=== PATIENT | female | born 1935 | race Caucasian/White ===

== ENCOUNTER → 2019-09-19 | Outpatient (CLI) | payer MEDICARE, BC ==
--- NOTE | 2019-09-19 15:17 | P.ARTDOP ---
Arterial Doppler LOWER EXTREMITY ARTERIAL DOPPLER: DATE OF SERVICE: 09/19/2019 Reason for study: Foot rubor. Doppler waveforms: Multiphasic at the femoral level, atypical to the ankle and foot level. Toe waveforms are flat line. Pulse volume recording: []. Pressure gradients: Above the low thigh on the right and across the knee on the left. Ankle-brachial indices: 0.39 on the right and 0.49 on the left. Toe pressures: [] on the right, [] on the left Impression: Suggests moderate to severe right femoral popliteal disease. Moderate left fem-pop disease. Clinical correlation recommended..
== END | disposition home or self-care (01) ==
LOC: RADUSWWP 12:59
PROVIDERS: ATTEND Internal Medicine
DX: L03.116 Cellulitis of left lower limb (principal)
CPT/HCPCS: 93923

== ENCOUNTER 2019-09-20 11:23 | Inpatient (IN) | payer MEDICARE, BC ==
--- NOTE | 2019-09-20 12:25 | ED ---
General Adult HPI - General Source: patient, family, RN notes reviewed Mode of arrival: wheelchair Limitations: no limitations <Agustín Lopez - Last Filed: 09/20/19 15:54> <Yosvany Nye - Last Filed: 09/20/19 16:07> - General Chief complaint: Extremity Injury, Lower Stated complaint: rt foot infection Time Seen by Provider: 09/20/19 11:53 - History of Present Illness Initial comments: 84-year-old female presents to the emergency department for right foot pain. Daughter states this has been ongoing for several weeks, she is unsure exactly how long. States her foot is red and swollen. States she has a small laceration on the plantar aspect of the right great toe that has been there for several weeks. States she has a small black spot on the right pinky toe she is concerned about. They did go to urgent care 5 days ago and was started on Keflex and Bactrim without improvement of symptoms. She saw her primary care yesterday who ordered an arterial study. This is as documented.Patient has no other complaints at this time including shortness of breath, chest pain, abdominal pain, nausea or vomiting, headache, or visual changes. (Agustín Lopez) - Related Data Allergies Allergy/AdvReac Type Severity Reaction Status Date / Time No Known Allergies Allergy Verified 09/20/19 11:28 Review of Systems ROS Other: All systems not noted in ROS Statement are negative. <Agustín Lopez - Last Filed: 09/20/19 15:54> ROS Other: All systems not noted in ROS Statement are negative. <Yosvany Nye - Last Filed: 09/20/19 16:07> ROS Statement: Those systems with pertinent positive or pertinent negative responses have been documented in the HPI. Past Medical History Past Medical History: Dementia, Hyperlipidemia, Hypertension, Thyroid Disorder History of Any Multi-Drug Resistant Organisms: None Reported Past Surgical History: Adenoidectomy, Hysterectomy, Tonsillectomy Past Psychological History: No Psychological Hx Reported Smoking Status: Never smoker Past Alcohol Use History: None Reported Past Drug Use History: None Reported <Agustín Lopez - Last Filed: 09/20/19 15:54> General Exam Limitations: no limitations General appearance: alert, in no apparent distress Head exam: Present: atraumatic, normocephalic, normal inspection Eye exam: Present: normal appearance, PERRL, EOMI. Absent: scleral icterus, conjunctival injection, periorbital swelling ENT exam: Present: normal exam, mucous membranes moist Neck exam: Present: normal inspection, full ROM. Absent: tenderness, meningismus, lymphadenopathy Respiratory exam: Present: normal lung sounds bilaterally. Absent: respiratory distress, wheezes, rales, rhonchi, stridor Cardiovascular Exam: Present: regular rate, normal rhythm, normal heart sounds. Absent: systolic murmur, diastolic murmur, rubs, gallop, clicks Extremities exam: Present: full ROM (pt is able to move all toes of the right foot.), other (Patient has mild edema noted of the toes with mild erythema extending to the proximal aspect of the right foot. There is a chronic fissure noted along the plantar aspect of the first great toe. There is a small area of black tissue noted on the right pinky toe about 1 cm by 1 cm. ). Absent: normal capillary refill (sluggish cap refill. Pt pulse evident on dopper in RLE) <Agustín Lopez - Last Filed: 09/20/19 15:54> Course <Agustín Lopez - Last Filed: 09/20/19 15:54> <Yosvany Nye - Last Filed: 09/20/19 16:07> Vital Signs 09/20/19 09/20/19 11:28 15:00 Temperature 97.6 F Pulse Rate 58 L 62 Respiratory 16 18 Rate Blood Pressure 119/54 114/58 O2 Sat by Pulse 99 98 Oximetry - Reevaluation(s) Reevaluation #1: 09/20/19 13:53 Delay in care occurred when labs were not taken down to laboratory due to tube s ystem malfunction. I did contact the charge nurse Marilia MORALES about this. 09/20/19 14:55 Patients CBC clotted. Needed to redraw (Agustín Lopez) Reevaluation #2: 09/20/19 15:45 Patient asked for some time to make her decision about admission. (Agustín Lopez) 09/20/19 16:06 PA supervision: I personally saw the [id number] evaluation the patient did discuss the findings with her and her family did discuss case Dr. Araujo the patient will be admitted with consultation by Dr. Blackmon (Yosvany Nye) Medical Decision Making - Lab Data Result diagrams: 09/20/19 14:44 09/20/19 13:20 <Agustín Lopez - Last Filed: 09/20/19 15:54> - Lab Data Result diagrams: 09/20/19 14:44 09/20/19 13:20 <Yosvany Nye - Last Filed: 09/20/19 16:07> - Medical Decision Making Patient had an arterial study done of the lower extremities yesterday. This did show moderate to severe right femoral popliteal disease. CBC CMP unremarkable. Examination reveals erythematous right foot with mild edema. Family does state rubor increases with dependency. There is a small area of likely necrotic tissue noted to the lateral aspect of the right fifth toe. Patients daughter reports this has increased in size in the past day. Capillary refill is sluggish. Patient does have a PT pulse on Doppler. Arterial study was reviewed which showed moderate to severe right femoral popliteal disease. Patient was also evaluated by Dr. Nye. At this time recommends admission for patient to see vascular surgery as she cannot see surgeon until next week. We do not suspect this to be a cellulitis at this time, further antibiotics will not be ordered. (Agustín Lopez) - Lab Data Lab Results 09/20/19 09/20/19 09/20/19 Range/Units 13:20 13:20 14:44 WBC 6.3 (3.8-10.6) k/uL RBC 3.63 L (3.80-5.40) m/uL Hgb 11.7 (11.4-16.0) gm/dL Hct 35.3 (34.0-46.0) % MCV 97.0 (80.0-100.0) fL MCH 32.2 (25.0-35.0) pg MCHC 33.2 (31.0-37.0) g/dL RDW 16.0 H (11.5-15.5) % Plt Count 349 (150-450) k/uL Neutrophils % 51 % Lymphocytes % 31 % Monocytes % 10 % Eosinophils % 1 % Basophils % 3 % Neutrophils # 3.2 (1.3-7.7) k/uL Lymphocytes # 2.0 (1.0-4.8) k/uL Monocytes # 0.6 (0-1.0) k/uL Eosinophils # 0.1 (0-0.7) k/uL Basophils # 0.2 (0-0.2) k/uL Sodium 135 L (137-145) mmol/L Potassium 5.1 (3.5-5.1) mmol/L Chloride 101 (98-107) mmol/L Carbon Dioxide 20 L (22-30) mmol/L Anion Gap 14 mmol/L BUN 25 H (7-17) mg/dL Creatinine 0.93 (0.52-1.04) mg/dL Est GFR (CKD-EPI)AfAm 65 (>60 ml/min/1.73 sqM) Est GFR (CKD-EPI)NonAf 56 (>60 ml/min/1.73 sqM) Glucose 84 (74-99) mg/dL Plasma Lactic Acid Taras 1.2 (0.7-2.0) mmol/L Calcium 9.6 (8.4-10.2) mg/dL Total Bilirubin 0.6 (0.2-1.3) mg/dL AST 36 (14-36) U/L ALT 26 (9-52) U/L Alkaline Phosphatase 48 (38-126) U/L Total Protein 8.0 (6.3-8.2) g/dL Albumin 4.3 (3.5-5.0) g/dL Disposition Is patient prescribed a controlled substance at d/c from ED?: No Time of Disposition: 15:55 <Agustín Lopez - Last Filed: 09/20/19 15:54> <Yosvany Nye - Last Filed: 09/20/19 16:07> Clinical Impression: Peripheral arterial disease Disposition: ADMITTED IP TO THIS HOSP Condition: Good Referrals: Bonifacio Carrero MD [Primary Care Provider] - 1-2 days
[2019-09-20] MEDS ORDERED: cefTRIAXone IN SWFI 1,000 MG/10 ML SYRINGE IVP STA (12:36)
[2019-09-20] MEDS ORDERED: SODIUM CHLORIDE 0.9% 500 ML 500 ML IV STA (12:37)
--- NOTE | 2019-09-20 14:10 | XR ---
EXAMINATION TYPE: XR foot complete RT DATE OF EXAM: 09/20/2019 COMPARISON: NONE HISTORY: 84-year-old female pain, possible cellulitis. TECHNIQUE: 3 views FINDINGS: Some soft tissue swelling along the lateral forefoot. No acute fracture, subluxation, dislocation is seen. No discrete osseous erosions. Small plantar calcaneal spur. IMPRESSION: Soft tissue swelling especially along the lateral forefoot. No underlying acute osseous abnormality s een.
[2019-09-20 14:16] LABS: Albumin 4.3 g/dL (3.5-5.0); Calcium 9.6 mg/dL (8.4-10.2); Total Bilirubin 0.6 mg/dL (0.2-1.3)
[2019-09-20 14:23] LABS: Potassium 5.1 mmol/L (3.5-5.1)
[2019-09-20 15:05] LABS: Basophils # (A) 0.2 k/uL (0-0.2); Basophils % (A) 3 %; Eosinophils # (A) 0.1 k/uL (0-0.7); Eosinophils % (A) 1 %; HCT 35.3 % (34.0-46.0); HGB 11.7 gm/dL (11.4-16.0); Lymphocytes % (A) 31 %; MCH 32.2 pg (25.0-35.0); MCHC 33.2 g/dL (31.0-37.0); Mean Platelet Volume 7.3; Monocytes # (A) 0.6 k/uL (0-1.0); Monocytes % (A) 10 %; Neutrophils # (A) 3.2 k/uL (1.3-7.7); Neutrophils % (A) 51 %; Platelet Count 349 k/uL (150-450); RBC 3.63 m/uL (3.80-5.40); WBC 6.3 k/uL (3.8-10.6)
[2019-09-20] MEDS ORDERED: NALOXONE 0.4 MG/ML 1 ML VIAL IV PRN (15:50)
[2019-09-20] MEDS ORDERED: HEPARIN SODIUM,PORCINE 5,000 UNIT/ML 1 ML VIAL IV ONE (16:04)
[2019-09-20] MEDS: SODIUM CHLORIDE 0.9% 1,000 ML IV SCH (16:36)
[2019-09-20] MEDS: HEPARIN SOD,PORK IN 0.45% NACL 25,000 UNIT in 0.45% NACL 1 250ML.BAG IV SCH (16:36)
[2019-09-20] MEDS: ATORVASTATIN 10 MG TAB PO SCH (21:08)
[2019-09-20] MEDS: METOPROLOL TARTRATE 25 MG TAB PO SCH (21:08)
[2019-09-21] MEDS: ACETAMINOPHEN TAB 325 MG TAB PO PRN (02:11)
[2019-09-21] MEDS: SODIUM CHLORIDE 0.9% 1,000 ML IV SCH ×2 (04:33→17:37)
[2019-09-21] MEDS: LEVOTHYROXINE 50 MCG TAB PO SCH (05:11)
[2019-09-21] MEDS: METOPROLOL TARTRATE 25 MG TAB PO SCH ×2 (08:45→22:24)
[2019-09-21] MEDS ORDERED: PARoxetine 20 MG TAB PO SCH (09:00)
[2019-09-21 09:03] LABS: INR 0.9 (<1.2); Partial Thromboplastin Time 43.8 sec (22.0-30.0)
[2019-09-21] MEDS: HEPARIN SODIUM,PORCINE 5,000 UNIT/ML 1 ML VIAL IV PRN (09:38)
[2019-09-21 09:58] LABS: Anisocytosis Slight; HCT 36.7 % (34.0-46.0); HGB 12.2 gm/dL (11.4-16.0); MCH 32.4 pg (25.0-35.0); MCHC 33.3 g/dL (31.0-37.0); MCV 97.3 fL (80.0-100.0); Mean Platelet Volume 8.8; Platelet Count 185 k/uL (150-450); RBC 3.77 m/uL (3.80-5.40); WBC 5.6 k/uL (3.8-10.6)
[2019-09-21 10:25] LABS: Band Neutrophils % 1 %; Lymphocytes # (M) 2.18 k/uL (1.0-4.8); Neutrophils % (M) 51 %; Nucleated Red Blood Cells 0 /100 WBC (0-0); Total Cells Counted 100
[2019-09-21 10:26] LABS: Poikilocytosis (M) Present
--- NOTE | 2019-09-21 14:25 | CT ---
EXAMINATION TYPE: CT angio abd aorta w/Runoff DATE OF EXAM: 09/21/2019 HISTORY: PAD, critical limb ischemia, right foot wound. CT DLP: 541.7mGycm Automated Exposure Control for Dose Reduction was Utilized. CONTRAST: CT scan of the abdomen and pelvis is performed with IV Contrast, patient injected with 80 mL of Isovu e 370. Three-dimensional reconstructions performed on an alternate workstation. COMPARISON: CT 08/19/2010 FINDINGS: The abdominal aorta, celiac axis, superior mesenteric artery, renal arteries, inferior mese nteric artery, common iliac, internal and external iliac arteries, common femoral, superficial deep f emoral arteries, popliteal artery on the left are patent. Poststenotic dilatation noted of the celiac axis. There is a segmental occlusion of the right popliteal artery. High-grade stenosis present of t he left popliteal artery, axial image #204. Atheromatous changes are present bilaterally. Trifurcatio n vessels enhance on the left. Peroneal artery on the right does not enhance the same degree as the a nterior tibial and posterior tibial arteries. LUNG BASES: No significant abnormality is appreciated. Minimal atelectatic changes are present. LIVER/GB: No significant abnormality is appreciated. PANCREAS: No significant abnormality is seen. SPLEEN: No significant abnormality is seen. ADRENALS: No significant abnormality is seen. KIDNEYS: No significant abnormality is seen. BOWEL: Diverticular change is extensive in the sigmoid colon. UTERUS/ADNEXA: No gross abnormality see n. LYMPH NODES: No greater than 1cm abdominal or pelvic lymph nodes are appreciated. OSSEOUS STRUCTURES: There is a spinal curvature. Degenerative disc changes are present visualized spi ne. Chondrocalcinosis present within the kidneys. Osteoarthritic change present within the hips. OTHER: There is a small hiatal hernia. Uterus and adnexal structures not seen. There are coronary art essence calcifications present. Injection granuloma noted incidentally. IMPRESSION: Peripheral vascular occlusive disease as described.
--- NOTE | 2019-09-21 14:36 | P.HPIM ---
History of Present Illness H&P Date: 09/21/19 Chief Complaint: Right foot pain This is an 84-year-old female newly established with Dr. Araujo/Anjana with past medical history of dementia, hyperlipidemia, hypertension, hypothyroidism. Patient has had a small wound to the right fifth toe for approximately one month. It has become very painful and red. Patient is unable to bear weight and walk normally. She has been limping due to the pain in the toe. She is also noted to have small wounds to the plantar surface base of the right great toe, fourth and fifth toes. She had an arterial study done on by Dr. Gavin revealed moderate to severe right femoral popliteal disease. Moderate left fem-pop disease. Patient is currently living at home alone. The last couple weeks, patient has been staying with her daughter. Patient does not use an assistive device to ambulate. Patient presented to [facility] emergency center and was found to be afebrile, heart rate 58, blood pressure 119/54, pulse ox 99% on room air. CBC was within normal limits, sodium 135, potassium 5.1, chloride 101, CO2 20, BUN 25 creatinine 0.93, blood sugar 84. Lactic acid 1.2. Liver function tests within normal limits. Albumin 4.3. Foot x-ray showed soft tissue swelling especially along the lateral forefoot. No underlying acute osseous abnormality seen. Patient was given a dose of Rocephin and started on heparin drip and IV fluids. Patient started on kefzol and consult with vascular surgeon for PAD. CTA abdomen aorta with runoff revealed peripheral vascular disease with post stenotic dilatation noted of the celiac axis. Segmental occlusion of the right popliteal artery. high-grade stenosis present at the left popliteal artery. Atheromatous changes present bilaterally. Trifurcation vessels enhance on the left. Peroneal artery on the right does not enhance the same degree as the anterior tibial and posterior tibial arteries. Review of Systems Constitutional: Reports fatigue, Denies chills, Denies fever, Denies poor appetite, Denies weakness Eyes: denies blurred vision, denies pain Ears, nose, mouth and throat: Denies dysphagia, Denies headache, Denies nasal congestion, Denies nasal discharge, Denies sore throat Cardiovascular: Denies chest pain, Denies decreased exercise tolerance, Denies dyspnea on exertion, Denies edema, Denies leg edema, Denies lightheadedness, Denies shortness of breath, Denies syncope Respiratory: Denies cough, Denies cough with sputum, Denies dyspnea, Denies excessive sputum, Denies hemoptysis, Denies home oxygen, Denies respiratory infections, Denies wheezing Gastrointestinal: Denies abdominal pain, Denies diarrhea, Denies nausea, Denies vomiting Genitourinary: Denies dysuria, Denies hematuria, Denies urgency, Denies urinary frequency Musculoskeletal: Reports gait dysfunction, Reports muscle weakness, Denies f requent falls, Denies myalgias Integumentary: Reports wounds, Denies pruritus, Denies rash Neurological: Denies change in mentation, Denies confusion, Denies numbness, Denies weakness Psychiatric: Denies anxiety, Denies depression Endocrine: Denies fatigue, Denies weight change Past Medical History Past Medical History: Dementia, Hyperlipidemia, Hypertension, Thyroid Disorder Additional Past Medical History / Comment(s): Overactive thyroid History of Any Multi-Drug Resistant Organisms: None Reported Past Surgical History: Adenoidectomy, Hysterectomy, Tonsillectomy Additional Past Surgical History / Comment(s): Hemmroid surgery Past Anesthesia/Blood Transfusion Reactions: No Reported Reaction Past Psychological History: Anxiety, Depression Smoking Status: Never smoker Past Alcohol Use History: None Reported Additional Past Alcohol Use History / Comment(s): Patient is a lifelong nonsmoker, no marijuana or illicit drug use, no alcohol use. Patient lives at home alone. Past Drug Use History: None Reported - Past Family History Father Additional Family Medical History / Comment(s): Father from a stroke. Mother Additional Family Medical History / Comment(s): Mother at age 69 from some type of cancer and history of asthma. Brother(s) Additional Family Medical History / Comment(s): Patient had multiple brothers and all have had issues with dementia and strokes. Sister(s) Additional Family Medical History / Comment(s): Patient has 2 sisters one at age 82 from dementia and one at age 79 from coronary artery disease. Daughter(s) Additional Family Medical History / Comment(s): Patient has 3 children, one boy and 2 girls with no major medical problems. Medications and Allergies Home Medications Medication Instructions Recorded Confirmed Type Cephalexin [Keflex] 500 mg PO QID 09/20/19 09/20/19 History Hydrochlorothiazide 12.5 mg PO DAILY 09/20/19 09/20/19 History Levothyroxine Sodium [Synthroid] 50 mcg PO DAILY 09/20/19 09/20/19 History Metoprolol Tartrate [Lopressor] 25 mg PO BID 09/20/19 09/20/19 History PARoxetine [Paxil] 20 mg PO DAILY 09/20/19 09/20/19 History Simvastatin [Zocor] 20 mg PO HS 09/20/19 09/20/19 History Sulfamethox-Tmp 800-160Mg [Bactrim 1 tab PO BID 09/20/19 09/20/19 History DS 800-160 mg] Allergies Allergy/AdvReac Type Severity Reaction Status Date / Time No Known Allergies Allergy Verified 09/20/19 16:11 Physical Exam Vitals: Vital Signs Temp Pulse Pulse Resp BP BP BP 09/21/19 09:55 58 L 146/66 09/21/19 08:10 97.7 F 58 L 170/68 09/21/19 04:45 97.9 F 58 L 20 169/63 09/20/19 21:45 97.9 F 61 20 138/66 09/20/19 16:55 98.4 F 68 20 152/90 09/20/19 16:40 98.1 F 66 18 118/60 09/20/19 15:00 62 18 114/58 09/20/19 11:28 97.6 F 58 L 16 119/54 Pulse Ox 09/21/19 09:55 09/21/19 08:10 97 09/21/19 04:45 97 09/20/19 21:45 97 09/20/19 16:55 96 09/20/19 16:40 98 09/20/19 15:00 98 09/20/19 11:28 99 Intake and Output 09/20/19 09/21/19 09/21/19 22:59 06:59 14:59 Intake Total 200 0 91.987 Balance 200 0 91.987 Intake: Intake, IV Titration 91.987 Amount Heparin Sod,Pork in 0.45% 91.987 NaCl 25,000 unit In 0.45 % NaCl 1 250ml.bag @ 12 UNITS/KG/HR 5.443 mls/hr IV .Q24H EREN Rx#: [id number] Oral 200 0 Other: # Voids 3 10 Gen: This is an 84-year-old female. Patient is resting in bed appears comfortable and in no acute distress. HEENT: Head is atraumatic, normocephalic. Pupils equal, round. Sclerae is anicteric. NECK: Supple. No JVD. No lymphadenopathy. No thyromegaly. Bilateral bruit LUNGS: Clear to auscultation. No wheezes or rhonchi. No intercostal retraction s. HEART: Regular rate and rhythm. No murmur. ABDOMEN: Soft. Bowel sounds are present. No masses. No tenderness. EXTREMITIES: No pedal edema. No calf tenderness. Patient has a small necrotic area to the lateral right fifth toe, there are small wounds plantar surface at t he base of the great toe and fourth and fifth toes. NEUROLOGICAL: Patient is awake, alert and oriented to person. Cranial nerves 2 through 12 are grossly intact. Results CBC & Chem 7: 09/21/19 07:58 09/20/19 13:20 Labs: Abnormal Lab Results - Last 24 Hours (Table) 09/20/19 09/20/19 09/20/19 Range/Units 13:20 14:44 21:47 RBC 3.63 L (3.80-5.40) m/uL RDW 16.0 H (11.5-15.5) % APTT 61.7 H (22.0-30.0) sec Sodium 135 L (137-145) mmol/L Carbon Dioxide 20 L (22-30) mmol/L BUN 25 H (7-17) mg/dL 09/21/19 09/21/19 Range/Units 07:58 07:58 RBC 3.77 L (3.80-5.40) m/uL RDW 16.0 H (11.5-15.5) % APTT 43.8 H (22.0-30.0) sec Sodium (137-145) mmol/L Carbon Dioxide (22-30) mmol/L BUN (7-17) mg/dL Thrombosis Risk Factor Assmnt - DVT/VTE Prophylaxis DVT/VTE Prophylaxis: Pharmacologic Prophylaxis ordered - Choose All That Apply Each Factor Represents 1 point: Minor surgery planned, Swollen legs (current) Each Risk Factor Represents 3 Points: Age 75 years or older Thrombosis Risk Factor Assessment Total Risk Factor Score: 5 Thrombosis Risk Factor Assessment Level: High Risk Assessment and Plan Plan: 1. Peripheral arterial disease with ulceration to the right foot. Consult with vascular surgery appreciated. Patient has been started on a heparin drip, Kefzol. CTA revealed peripheral vascular disease with post stenotic dilatation noted of the celiac axis. Segmental occlusion of the right popliteal artery. high-grade stenosis present at the left popliteal artery. Atheromatous changes present bilaterally. Trifurcation vessels enhance on the left. Peroneal artery on the right does not enhance the same degree as the anterior tibial and posterior tibial arteries. 2. Hypertension. Continue Lopressor 25 mg twice daily. 3. Hyperlipidemia. Continue Lipitor 10 mg at bedtime. 4. Hypothyroidism. Continue levothyroxine 50 g daily. 5. Dementia with recurrent depression. Continue Paxil 20 mg daily. 6. DVT prophylaxis. Heparin. 7. GI prophylaxis. Pepcid. Patient will be admitted to the hospital for a minimum of 2 night stay. Discharge plan: To be determined. PT and OT consults in place. Impression and plan of care have been directed as dictated by the signing physician. Carmela Mccoy nurse practitioner acting as scribe for signing physician.
[2019-09-21] MEDS: HEPARIN SOD,PORK IN 0.45% NACL 25,000 UNIT in 0.45% NACL 1 250ML.BAG IV SCH (17:36)
--- NOTE | 2019-09-21 17:41 | P.GSCN ---
History of Present Illness Consult date: 09/21/19 Reason for Consult: Right foot pain, peripheral arterial disease History of present illness: 84-year-old female with past medical history of dementia, hyperlipidemia, hypertension, hypothyroidism presented to the hospital secondary to pain in her right foot and severe peripheral vascular disease noted on recent arterial study. Patient was seen September [address] Gavin for this pain and small wound on the plantar surface of the right great toe. Arterial Doppler was obtained with ABIs demonstrating severe peripheral arterial disease on the right with ABIs of 0.3. Patient states having difficulty with walking due to the significant pain in her foot and redness and per her daughter she is unable to weight-bear on the right leg. When she was worked up in the emergency department for foot pain her x-ray showed soft tissue swelling but no other abnormalities. She was given Rocephin and started on a heparin drip for her vascular disease. Currently she denies any significant pain and does not want any surgical intervention. Her daughter though does want intervention if necessary. Currently she denies any fevers, chills, chest pain or shortness of breath. Past Medical History Past Medical History: Dementia, Hyperlipidemia, Hypertension, Thyroid Disorder Additional Past Medical History / Comment(s): Overactive thyroid History of Any Multi-Drug Resistant Organisms: None Reported Past Surgical History: Adenoidectomy, Hysterectomy, Tonsillectomy Additional Past Surgical History / Comment(s): Hemmroid surgery Past Anesthesia/Blood Transfusion Reactions: No Reported Reaction Past Psychological History: Anxiety, Depression Smoking Status: Never smoker Past Alcohol Use History: None Reported Additional Past Alcohol Use History / Comment(s): Patient is a lifelong nonsmoker, no marijuana or illicit drug use, no alcohol use. Patient lives at home alone. Past Drug Use History: None Reported - Past Family History Father Additional Family Medical History / Comment(s): Father from a stroke. Mother Additional Family Medical History / Comment(s): Mother at age 69 from some type of cancer and history of asthma. Brother(s) Additional Family Medical History / Comment(s): Patient had multiple brothers a nd all have had issues with dementia and strokes. Sister(s) Additional Family Medical History / Comment(s): Patient has 2 sisters one at age 82 from dementia and one at age 79 from coronary artery disease. Daughter(s) Additional Family Medical History / Comment(s): Patient has 3 children, one boy and 2 girls with no major medical problems. Medications and Allergies Home Medications Medication Instructions Recorded Confirmed Type Cephalexin [Keflex] 500 mg PO QID 09/20/19 09/20/19 History Hydrochlorothiazide 12.5 mg PO DAILY 09/20/19 09/20/19 History Levothyroxine Sodium [Synthroid] 50 mcg PO DAILY 09/20/19 09/20/19 History Metoprolol Tartrate [Lopressor] 25 mg PO BID 09/20/19 09/20/19 History PARoxetine [Paxil] 20 mg PO DAILY 09/20/19 09/20/19 History Simvastatin [Zocor] 20 mg PO HS 09/20/19 09/20/19 History Sulfamethox-Tmp 800-160Mg [Bactrim 1 tab PO BID 09/20/19 09/20/19 History DS 800-160 mg] Allergies Allergy/AdvReac Type Severity Reaction Status Date / Time No Known Allergies Allergy Verified 09/20/19 16:11 Surgical - Exam Vital Signs Temp Pulse Resp BP Pulse Ox 97.6 F 58 L 16 119/54 99 09/20/19 11:28 09/20/19 11:28 09/20/19 11:28 09/20/19 11:28 09/20/19 11:28 Nonpalpable DP, PT, popliteal pulse on the right. Palpable femoral pulse noted by diminished compared to the left common femoral. Nonpalpable DP or PT pulses on the left lower extremity. Erythematous right foot with black discoloration and ulceration on the plantar surface of the fifth toe. Small wound noted on the right great toe. Capillary refill is slowed. - General Demented well developed, well nourished, no distress - Eyes PERRL, normal ocular movement - Neck no masses, trachea midline - Respiratory normal expansion, normal respiratory effort, clear to auscultation - Cardiovascular Rhythm: regular - Abdomen Abdomen: soft, non tender - Integumentary no rash - Psychiatric oriented to person Results - Labs 09/21/19 07:58 09/20/19 13:20 Abnormal Lab Results - Last 24 Hours (Table) 09/20/19 09/21/19 09/21/19 Range/Units 21:47 07:58 07:58 RBC 3.77 L (3.80-5.40) m/uL RDW 16.0 H (11.5-15.5) % APTT 61.7 H 43.8 H (22.0-30.0) sec 09/21/19 Range/Units 15:16 RBC (3.80-5.40) m/uL RDW (11.5-15.5) % APTT 75.4 H (22.0-30.0) sec Microbiology - Last 24 Hours (Table) 09/20/19 13:20 Blood Culture - Preliminary Blood No Growth after 24 hours Assessment and Plan Assessment: #1 right lower extremity critical limb ischemia with toe wounds #2 severe bilateral lower extremity peripheral arterial disease #3 hypertension #4 hypothyroidism #5 dementia Plan: Long discussion was had with the patient and her daughter about potential intervention as well as diagnostic imaging. Due to the fact that she has significant dementia and would unlikely be able to lay flat for 4 hours we did order a CT angiogram of the abdominal aorta with bilateral lower extremity runoff. I do agree with continued heparin drip at this time as well as antibiotics until we see the extent of her disease. Further discussion will have to be had with the family about intervention and if she would even want int ervention at this time. We will follow with you. Thank you for allowing me to participate in your patient's care. If there is any questions or concerns please feel free to call at any time.
[2019-09-21] MEDS: ATORVASTATIN 10 MG TAB PO SCH (22:25)
[2019-09-21] MEDS: PARoxetine 20 MG TAB PO SCH (22:25)
[2019-09-22] MEDS: LEVOTHYROXINE 50 MCG TAB PO SCH (05:35)
[2019-09-22 08:00] LABS: Basophils # (A) 0.1 k/uL (0-0.2); Basophils % (A) 1 %; Eosinophils # (A) 0.1 k/uL (0-0.7); Eosinophils % (A) 1 %; HCT 35.9 % (34.0-46.0); HGB 11.7 gm/dL (11.4-16.0); Hypochromasia Slight; Lymphocytes # (A) 2.4 k/uL (1.0-4.8); Lymphocytes % (A) 51 %; MCHC 32.4 g/dL (31.0-37.0); MCV 98.8 fL (80.0-100.0); Mean Platelet Volume 6.9; Monocytes # (A) 0.3 k/uL (0-1.0); Monocytes % (A) 6 %; Neutrophils # (A) 1.8 k/uL (1.3-7.7); Neutrophils % (A) 37 %; Platelet Count 336 k/uL (150-450); RBC 3.64 m/uL (3.80-5.40); RDW 15.6 % (11.5-15.5); WBC 4.8 k/uL (3.8-10.6)
[2019-09-22 08:06] LABS: Prothrombin Time 10.5 sec (9.0-12.0)
--- NOTE | 2019-09-22 09:02 | P.PN ---
Subjective Progress Note Date: 09/22/19 Patient is evaluated today in reference to right lower extremity arterial occlusive disease. She did undergo CT angiogram of the lower extremities and results are reviewed. I did have a discussion with the patient's daughter who was at her bedside today. The patient does have a right distal SFA/popliteal artery occlusion with resultant arterial insufficiency of the right lower extremity. I discussed with the patient's daughter atherectomy. The procedure, risk and benefits were reviewed with the daughter. The daughter wished to proceed with same. We will tentatively schedule this for September 24. Until then I agree with currently instituted therapy of IV heparin drip. Objective - Vital Signs Vital signs: Vital Signs Temp 97.7 F 09/22/19 06:09 Pulse 53 L 09/22/19 06:09 Resp 15 09/22/19 06:09 BP 168/52 09/22/19 06:09 Pulse Ox 97 09/22/19 06:09 Intake & Output 09/21/19 09/22/19 09/22/19 18:59 06:59 18:59 Intake Total 143.422 Balance 143.422 Intake: Intake, IV Titration 143.422 Amount Heparin Sod,Pork in 0.45% 143.422 NaCl 25,000 unit In 0.45 % NaCl 1 250ml.bag @ 12 UNITS/KG/HR 5.443 mls/hr IV .Q24H EREN Rx#: [id number] Other: # Voids 2 2 # Bowel Movements 1 - Labs CBC & Chem 7: 09/22/19 07:10 09/20/19 13:20 Labs: Abnormal Lab Results - Last 24 Hours (Table) 09/21/19 09/21/19 09/21/19 Range/Units 07:58 07:58 15:16 RBC 3.77 L (3.80-5.40) m/uL RDW 16.0 H (11.5-15.5) % APTT 43.8 H 75.4 H (22.0-30.0) sec 09/22/19 09/22/19 Range/Units 07:10 07:10 RBC 3.64 L (3.80-5.40) m/uL RDW 15.6 H (11.5-15.5) % APTT 60.0 H (22.0-30.0) sec Microbiology - Last 24 Hours (Table) 09/20/19 13:20 Blood Culture - Preliminary Blood No Growth after 24 hours
[2019-09-22] MEDS: FAMOTIDINE 20 MG TAB PO SCH (09:44)
[2019-09-22] MEDS: METOPROLOL TARTRATE 25 MG TAB PO SCH ×2 (09:44→21:45)
[2019-09-22] MEDS: DOCUSATE 100 MG CAP PO SCH (15:42)
--- NOTE | 2019-09-22 16:44 | P.PN ---
Subjective Progress Note Date: 09/22/19 This is an 84-year-old female newly established with Dr. Araujo/Anjana with past medical history of dementia, hyperlipidemia, hypertension, hypothyroidism. Patient has had a small wound to the right fifth toe for approximately one month. It has become very painful and red. Patient is unable to bear weight and walk normally. She has been limping due to the pain in the toe. She is also noted to have small wounds to the plantar surface base of the right great toe, fourth and fifth toes. She had an arterial study done on September [address] Gavin revealed moderate to severe right femoral popliteal disease. Moderate left fem-pop disease. Patient is currently living at home alone. The last couple weeks, patient has been staying with her daughter. Patient does not use an assistive device to ambulate. Patient presented to [facility] emergency center and was f ound to be afebrile, heart rate 58, blood pressure 119/54, pulse ox 99% on room air. CBC was within normal limits, sodium 135, potassium 5.1, chloride 101, CO2 20, BUN 25 creatinine 0.93, blood sugar 84. Lactic acid 1.2. Liver function tests within normal limits. Albumin 4.3. Foot x-ray showed soft tissue swelling especially along the lateral forefoot. No underlying acute osseous abnormality seen. Patient was given a dose of Rocephin and started on heparin drip and IV fluids. Patient started on kefzol and consult with vascular surgeon for PAD. CTA abdomen aorta with runoff revealed peripheral vascular disease with post stenotic dilatation noted of the celiac axis. Segmental occlusion of the right popliteal artery. high-grade stenosis present at the left popliteal artery. Atheromatous changes present bilaterally. Trifurcation vessels enhance on the left. Peroneal artery on the right does not enhance the same degree as the anterior tibial and posterior tibial arteries. 09/22, patient has minimal claudication leg, patient has full congestion whenever she drops the leg in her sitting position, patient does not have any shortness of breath of cough, plans for thrombectomy on Tuesday, patient currently is on IV heparin family is at bedside, no chest pain no palpitations, no GI bleed Review of Systems Constitutional: Reports fatigue, Denies chills, Denies fever, Denies poor appetite, Denies weakness Eyes: denies blurred vision, denies pain Ears, nose, mouth and throat: Denies dysphagia, Denies headache, Denies nasal congestion, Denies nasal discharge, Denies sore throat Cardiovascular: Denies chest pain, Denies decreased exercise tolerance, Denies dyspnea on exertion, Denies edema, Denies leg edema, Denies lightheadedness, Denies shortness of breath, Denies syncope Respiratory: Denies cough, Denies cough with sputum, Denies dyspnea, Denies excessive sputum, Denies hemoptysis, Denies home oxygen, Denies respiratory infections, Denies wheezing Gastrointestinal: Denies abdominal pain, Denies diarrhea, Denies nausea, Denies vomiting Genitourinary: Denies dysuria, Denies hematuria, Denies urgency, Denies urinary frequency Musculoskeletal: Reports gait dysfunction, Reports muscle weakness, Denies frequent falls, Denies myalgias Integumentary: Reports wounds, Denies pruritus, Denies rash Neurological: Denies change in mentation, Denies confusion, Denies numbness, Denies weakness Psychiatric: Denies anxiety, Denies depression Endocrine: Denies fatigue, Denies weight change Objective - Vital Signs Vital signs: Vital Signs Temp 98.0 F 09/22/19 13:37 Pulse 60 09/22/19 13:37 Resp 16 09/22/19 13:37 BP 158/55 09/22/19 13:37 Pulse Ox 97 09/22/19 13:37 Intake & Output 09/21/19 09/22/19 09/22/19 18:59 06:59 18:59 Intake Total 634.729 6698.658 Balance 720.575 6493.658 Intake: Intake, IV Titration 143.422 102.658 Amount Heparin Sod,Pork in 0.45% 143.422 102.658 NaCl 25,000 unit In 0.45 % NaCl 1 250ml.bag @ 12 UNITS/KG/HR 5.443 mls/hr IV .Q24H EREN Rx#: [id number] Oral 900 Other: # Voids 2 2 2 # Bowel Movements 1 - Constitutional General appearance: Present: cooperative, no acute distress - EENT Eyes: Present: anicteric sclerae, EOMI, PERRLA, dentition normal, normal appearance ENT: Present: NA/AT, normal oropharynx - Neck Neck: Present: normal ROM - Respiratory Respiratory: bilateral: CTA, negative: diminished, dullness, rales, rhonchi - Cardiovascular Rhythm: regular Heart sounds: normal: S1, S2 Abnormal Heart Sounds: Absent: systolic murmur, diastolic murmur, rub, S3 Gallop, S4 Gallop, click, other - Gastrointestinal General gastrointestinal: Present: normal bowel sounds, soft - Integumentary Integumentary: Present: decreased turgor, normal - Neurologic Neurologic: Present: CNII-XII intact - Musculoskeletal Musculoskeletal: Present: strength equal bilaterally - Psychiatric Psychiatric: Present: A&O x's 3, appropriate affect - Labs CBC & Chem 7: 09/23/19 07:28 09/23/19 07:28 Labs: Abnormal Lab Results - Last 24 Hours (Table) 09/22/19 09/22/19 Range/Units 07:10 07:10 RBC 3.64 L (3.80-5.40) m/uL RDW 15.6 H (11.5-15.5) % APTT 60.0 H (22.0-30.0) sec Microbiology - Last 24 Hours (Table) 09/20/19 13:20 Blood Culture - Preliminary Blood No Growth after 48 hours Assessment and Plan Plan: 1. Peripheral arterial disease with ulceration to the right foot. Consult with vascular surgery appreciated. Patient has been started on a heparin drip, Kefzol. CTA revealed peripheral vascular disease with post stenotic dilatation noted of the celiac axis. Segmental occlusion of the right popliteal artery. high-grade stenosis present at the left popliteal artery. Atheromatous changes present bilaterally. Trifurcation vessels enhance on the left. Peroneal artery on the right does not enhance the same degree as the anterior tibial and posterior tibial arteries.. IV heparin infusing, with plans for thrombectomy on Tuesday, September 24 by vascular surgery 2. Hypertension. Continue Lopressor 25 mg twice daily. 3. Hyperlipidemia. Continue Lipitor 10 mg at bedtime. 4. Hypothyroidism. Continue levothyroxine 50 g daily. 5. Dementia with recurrent depression. Continue Paxil 20 mg daily. 6. DVT prophylaxis. Heparin. 7. GI prophylaxis. Pepcid. Patient will be admitted to the hospital for a minimum of 2 night stay. Discharge plan: To be determined. PT and OT consults in place.
[2019-09-22] MEDS: HEPARIN SOD,PORK IN 0.45% NACL 25,000 UNIT in 0.45% NACL 1 250ML.BAG IV SCH (17:16)
[2019-09-22] MEDS: SODIUM CHLORIDE 0.9% 1,000 ML IV SCH (17:17)
[2019-09-22] MEDS: PARoxetine 20 MG TAB PO SCH (21:45)
[2019-09-22] MEDS: ATORVASTATIN 10 MG TAB PO SCH (21:46)
[2019-09-23] MEDS: LEVOTHYROXINE 50 MCG TAB PO SCH (05:52)
[2019-09-23 07:43] LABS: Basophils # (A) 0.1 k/uL (0-0.2); Basophils % (A) 1 %; Eosinophils # (A) 0.1 k/uL (0-0.7); Eosinophils % (A) 2 %; HCT 34.9 % (34.0-46.0); HGB 11.4 gm/dL (11.4-16.0); Hypochromasia Slight; Lymphocytes # (A) 2.6 k/uL (1.0-4.8); Lymphocytes % (A) 51 %; MCH 32.1 pg (25.0-35.0); MCHC 32.6 g/dL (31.0-37.0); MCV 98.7 fL (80.0-100.0); Mean Platelet Volume 6.6; Monocytes # (A) 0.3 k/uL (0-1.0); Monocytes % (A) 6 %; Neutrophils # (A) 1.9 k/uL (1.3-7.7); Neutrophils % (A) 37 %; Platelet Count 310 k/uL (150-450); RBC 3.54 m/uL (3.80-5.40); RDW 15.6 % (11.5-15.5); WBC 5.2 k/uL (3.8-10.6)
[2019-09-23 07:55] LABS: INR 0.9 (<1.2); Partial Thromboplastin Time 77.7 sec (22.0-30.0); Prothrombin Time 10.2 sec (9.0-12.0)
[2019-09-23] MEDS: METOPROLOL TARTRATE 25 MG TAB PO SCH ×2 (08:02→21:18)
[2019-09-23] MEDS: DOCUSATE 100 MG CAP PO SCH (08:02)
[2019-09-23] MEDS: FAMOTIDINE 20 MG TAB PO SCH (08:02)
[2019-09-23] MEDS: HEPARIN SOD,PORK IN 0.45% NACL 25,000 UNIT in 0.45% NACL 1 250ML.BAG IV SCH (08:07)
[2019-09-23 08:21] LABS: African American GFR (CKD) >90 (>60 ml/min/1.73 sqM); Anion Gap 6 mmol/L; Blood Urea Nitrogen 11 mg/dL (7-17); Calcium 9.2 mg/dL (8.4-10.2); Carbon Dioxide 24 mmol/L (22-30); Chloride 110 mmol/L (98-107); Glucose 94 mg/dL (74-99); Non-African American GFR(CKD) 81 (>60 ml/min/1.73 sqM); Potassium 4.5 mmol/L (3.5-5.1); Sodium 140 mmol/L (137-145)
[2019-09-23] MEDS: HEPARIN SODIUM,PORCINE 5,000 UNIT/ML 1 ML VIAL IV PRN (15:04)
--- NOTE | 2019-09-23 16:40 | P.PN ---
Subjective Progress Note Date: 09/23/19 This is an 84-year-old female newly established with Dr. Araujo/Anjana with past medical history of dementia, hyperlipidemia, hypertension, hypothyroidism. Patient has had a small wound to the right fifth toe for approximately one month. It has become very painful and red. Patient is unable to bear weight and walk normally. She has been limping due to the pain in the toe. She is also noted to have small wounds to the plantar surface base of the right great toe, fourth and fifth toes. She had an arterial study done on September [address] Gavin revealed moderate to severe right femoral popliteal disease. Moderate left fem-pop disease. Patient is currently living at home alone. The last couple weeks, patient has been staying with her daughter. Patient does not use an assistive device to ambulate. Patient presented to [facility] emergency center and was f ound to be afebrile, heart rate 58, blood pressure 119/54, pulse ox 99% on room air. CBC was within normal limits, sodium 135, potassium 5.1, chloride 101, CO2 20, BUN 25 creatinine 0.93, blood sugar 84. Lactic acid 1.2. Liver function tests within normal limits. Albumin 4.3. Foot x-ray showed soft tissue swelling especially along the lateral forefoot. No underlying acute osseous abnormality seen. Patient was given a dose of Rocephin and started on heparin drip and IV fluids. Patient started on kefzol and consult with vascular surgeon for PAD. CTA abdomen aorta with runoff revealed peripheral vascular disease with post stenotic dilatation noted of the celiac axis. Segmental occlusion of the right popliteal artery. high-grade stenosis present at the left popliteal artery. Atheromatous changes present bilaterally. Trifurcation vessels enhance on the left. Peroneal artery on the right does not enhance the same degree as the anterior tibial and posterior tibial arteries. 09/22, patient has minimal claudication leg, patient has full congestion whenever she drops the leg in her sitting position, patient does not have any shortness of breath of cough, plans for thrombectomy on Tuesday, patient currently is on IV heparin family is at bedside, no chest pain no palpitations, no GI bleed September 23: Patient does not have any new leg pain, the necrosis on the fifth toe remains to be the same, L less than the size of her pinky, patient doesn't have chest pain shortness of breath, patient scheduled for thrombectomy as expected tomorrow, IV heparin sign change , no falls no diarrhea no lightheadedness, hemoglobin at 11.4 from 11.7, platelet count 310, creatinine of 0.063 glucose 94 Review of Systems Constitutional: Reports fatigue, Denies chills, Denies fever, Denies poor appetite, Denies weakness Eyes: denies blurred vision, denies pain Ears, nose, mouth and throat: Denies dysphagia, Denies headache, Denies nasal congestion, Denies nasal discharge, Denies sore throat Cardiovascular: Denies chest pain, Denies decreased exercise tolerance, Denies dyspnea on exertion, Denies edema, Denies leg edema, Denies lightheadedness, Denies shortness of breath, Denies syncope Respiratory: Denies cough, Denies cough with sputum, Denies dyspnea, Denies excessive sputum, Denies hemoptysis, Denies home oxygen, Denies respiratory inf ections, Denies wheezing Gastrointestinal: Denies abdominal pain, Denies diarrhea, Denies nausea, Denies vomiting Genitourinary: Denies dysuria, Denies hematuria, Denies urgency, Denies urinary frequency Musculoskeletal: Reports gait dysfunction, Reports muscle weakness, Denies frequent falls, Denies myalgias Integumentary: Reports wounds, Denies pruritus, Denies rash Neurological: Denies change in mentation, Denies confusion, Denies numbness, Denies weakness Psychiatric: Denies anxiety, Denies depression Endocrine: Denies fatigue, Denies weight change Objective - Vital Signs Vital signs: Vital Signs Temp 98.1 F 09/23/19 13:36 Pulse 57 L 09/23/19 13:36 Resp 16 09/23/19 13:36 BP 150/55 09/23/19 13:36 Pulse Ox 97 09/23/19 13:36 Intake & Output 09/22/19 09/23/19 09/23/19 18:59 06:59 18:59 Intake Total 0494.155 9423.069 Balance 1950.292 4906.069 Intake: IV 253.44 Heparin Sod,Pork in 0.45% 43.44 NaCl 25,000 unit In 0.45 % NaCl 1 250ml.bag @ 12 UNITS/KG/HR 5.443 mls/hr IV .Q24H EREN Rx#: [id number] Sodium Chloride 0.9% 1, 160 000 ml @ 20 mls/hr IV . Q24H EREN Rx#:[id number] ceFAZolin 1,000 mg In 50 Sodium Chloride 0.9% 50 ml @ 100 mls/hr IVPB Q12HR EREN Rx#:[id number] Intake, IV Titration 150.283 130.629 Amount Heparin Sod,Pork in 0.45% 150.283 130.629 NaCl 25,000 unit In 0.45 % NaCl 1 250ml.bag @ 12 UNITS/KG/HR 5.443 mls/hr IV .Q24H EREN Rx#: [id number] Oral 900 800 Other: Voiding Method Bedside Commode # Voids 2 3 2 # Bowel Movements 1 - Constitutional General appearance: Present: cooperative, no acute distress, thin - EENT Eyes: Present: EOMI, PERRLA ENT: Present: NA/AT, normal oropharynx - Neck Neck: Present: normal ROM - Respiratory Respiratory: bilateral: CTA - Cardiovascular Rhythm: regular Abnormal Heart Sounds: Absent: systolic murmur, diastolic murmur, rub, S3 Gallop, S4 Gallop, click, other - Gastrointestinal General gastrointestinal: Present: normal bowel sounds - Integumentary Integumentary Comment(s): Fifth toe right side, with small necrosis, no drainage, the first crease on the bottom plantar first toe, shows a linear fissure, healing no discharge Integumentary: Present: normal, normal turgor - Neurologic Neurologic: Present: CNII-XII intact - Musculoskeletal Musculoskeletal: Present: gait normal, strength equal bilaterally - Psychiatric Psychiatric: Present: A&O x's 3, appropriate affect, intact judgment & insight - Labs CBC & Chem 7: 09/23/19 07:28 09/23/19 07:28 Labs: Abnormal Lab Results - Last 24 Hours (Table) 09/23/19 09/23/19 09/23/19 Range/Units 07:28 07:28 07:28 RBC 3.54 L (3.80-5.40) m/uL RDW 15.6 H (11.5-15.5) % APTT 77.7 H (22.0-30.0) sec Chloride 110 H (98-107) mmol/L 09/23/19 Range/Units 14:22 RBC (3.80-5.40) m/uL RDW (11.5-15.5) % APTT 46.0 H (22.0-30.0) sec Chloride (98-107) mmol/L Microbiology - Last 24 Hours (Table) 09/20/19 13:20 Blood Culture - Preliminary Blood No Growth after 72 hours Assessment and Plan Plan: 1. Peripheral arterial disease with ulceration to the right foot. Consult with vascular surgery appreciated. Patient has been started on a heparin drip, Kefzol. CTA revealed peripheral vascular disease with post stenotic dilatation noted of the celiac axis. Segmental occlusion of the right popliteal artery. high-grade stenosis present at the left popliteal artery. Atheromatous changes present bilaterally. Trifurcation vessels enhance on the left. Peroneal artery on the right does not enhance the same degree as the anterior tibial and posterior tibial arteries.. IV heparin infusing, with plans for thrombectomy on September 24 by vascular surgery 2. Hypertension. Continue Lopressor 25 mg twice daily. 3. Hyperlipidemia. Continue Lipitor 10 mg at bedtime. 4. Hypothyroidism. Continue levothyroxine 50 g daily. 5. Dementia with recurrent depression. Continue Paxil 20 mg daily. 6. DVT prophylaxis. Heparin. 7. GI prophylaxis. Pepcid. Patient will be admitted to the hospital for a minimum of 2 night stay. Discharge plan: To be determined. PT and OT consults in place.
[2019-09-23] MEDS: SODIUM CHLORIDE 0.9% 1,000 ML IV SCH (17:27)
[2019-09-23] MEDS: PARoxetine 20 MG TAB PO SCH (21:18)
[2019-09-23] MEDS: ATORVASTATIN 10 MG TAB PO SCH (21:18)
[2019-09-24 04:57] VITALS: RESP 18
[2019-09-24] MEDS: LEVOTHYROXINE 50 MCG TAB PO SCH (06:11)
[2019-09-24] MEDS: METOPROLOL TARTRATE 25 MG TAB PO SCH ×2 (06:12→20:34)
[2019-09-24] MEDS ORDERED: ASPIRIN 325 MG TAB PO ONE (07:00)
[2019-09-24] MEDS: DOCUSATE 100 MG CAP PO SCH (08:33)
[2019-09-24] MEDS: FAMOTIDINE 20 MG TAB PO SCH (08:33)
[2019-09-24] MEDS ORDERED: IV FLUID CONTINUATION 500 ML IV ONE (08:48)
[2019-09-24] MEDS ORDERED: MIDAZOLAM 2 MG/2 ML VIAL IV ONE (09:15)
[2019-09-24] MEDS ORDERED: HEPARIN SODIUM 1,000 UN/ML (10ML VL) IV ONE (09:21)
[2019-09-24] MEDS ORDERED: PROPRANOLOL 1 MG/ML 1 ML VIAL IV ONE (10:02)
[2019-09-24] MEDS ORDERED: MORPHINE SULFATE 4 MG/ML SYRINGE IV ONE (10:11)
[2019-09-24] MEDS ORDERED: IOPAMIDOL-370 100ML BTL INJ ONE (10:23)
[2019-09-24] MEDS ORDERED: CLOPIDOGREL 75 MG TAB PO ONE (10:30)
[2019-09-24] MEDS ORDERED: hydrALAZINE HCL 20 MG/ML 1 ML VIAL IV ONE (10:30)
--- NOTE | 2019-09-24 10:54 | P.OP ---
Date of Procedure: 09/24/19 Preoperative Diagnosis: Right superficial femoral/popliteal artery occlusive disease was secondary ischemic rest pain in the right foot Postoperative Diagnosis: Same. Procedure(s) Performed: #1: Ultrasound-guided cannulation right femoral artery. #2: Right femoral angiogram. #3: Atherectomy right superficial femoral popliteal arteries with balloon angioplasty. Implants: None. Anesthesia: other (Local with IV sedation) Surgeon: Garret Lo Estimated Blood Loss (ml): 20 IV fluids (ml): 100 Urine output (ml): 0 Pathology: none sent Condition: stable Disposition: floor Indications for Procedure: Patient is an [age] female who presented complaining of ischemic rest pain type symptoms of her right foot. Physical examination revealed femoral pulse to be intact on the right warm popliteal and pedal pulses are absent. Patient had diminished motor function of her right foot and a small area of other changes of her right fifth toe. Arterial Doppler was performed which was consistent with significant arterial insufficiency of the right lower extremity. CT angiogram was performed which demonstrated femoral and popliteal arterial occlusive disease on the right. Because of the patient's symptom complex as well as history and physical and a graphic findings patient is offered to percutaneous intervention. Description of Procedure: Patient was brought to the special procedure suite. Both groins were sterilely prepped and draped in usual manner. Patient did receive 1 mg of first said initially and eventually received a 1 mg dose of morphine intravenously during the procedure for conscious sedation purposes. Utilizing ultrasound the right common femoral artery was identified. 1% Xylocaine was utilized for local anesthesia of the tissues overlying the femoral artery. Through this anesthetized area a multipurpose needle was utilized to cannulate the femoral artery with the aid of ultrasound guidance. Once cannulated Softip guidewire was advanced into the artery. The needle was withdrawn and a 6-[place] sheath was placed. Patient did receive 4000 units of heparin intravenously. Right femoral angiogram was performed. This demonstrated the aforementioned occlusive disease. A 0.014 guidewire was advanced to the occlusive disease into the tibial vessel. A 6-[place] atherectomy system was selected and utilized to atherectomy eyes the femoral popliteal segments as well as the tibial peroneal trunk. Completion angiogram was performed. This demonstrated marked improvement in flow characteristics although some residual stenosis was noted. A 4 mm balloon catheter was utilized to balloon dilate the femoral popliteal segments. Completion angiogram was performed. This demonstrated no significant residual stenosis with brisk flow of contrast through the previously occluded and narrowed segments. Angiogram of the tibial arteries was performed. This demonstrated no embolic disease. With the above findings noted the sheath was withdrawn after the patient received 15 mg of protamine for to reverse the heparin effect. Pressure was held at the puncture site until all evidence of bleeding ceased. Palpable posterior tibial pulse was identified at the completion of the procedure. Total fluoroscopy time 5.0 minutes. Total contrast volume 30 ML's of Isovue 370
[2019-09-24] MEDS ORDERED: HYDROCHLOROTHIAZIDE 12.5 MG CAP PO STA (12:11)
[2019-09-24 12:47] LABS: African American GFR (CKD) >90 (>60 ml/min/1.73 sqM); Anion Gap 7 mmol/L; Blood Urea Nitrogen 15 mg/dL (7-17); Calcium 9.1 mg/dL (8.4-10.2); Carbon Dioxide 23 mmol/L (22-30); Chloride 111 mmol/L (98-107); Glucose 102 mg/dL (74-99); Non-African American GFR(CKD) 87 (>60 ml/min/1.73 sqM); Potassium 4.1 mmol/L (3.5-5.1); Sodium 141 mmol/L (137-145)
--- NOTE | 2019-09-24 14:44 | P.PN ---
Subjective Progress Note Date: 09/24/19 This is an 84-year-old female newly established with Dr. Araujo/Anjana with past medical history of dementia, hyperlipidemia, hypertension, hypothyroidism. Patient has had a small wound to the right fifth toe for approximately one month. It has become very painful and red. Patient is unable to bear weight and walk normally. She has been limping due to the pain in the toe. She is also noted to have small wounds to the plantar surface base of the right great toe, fourth and fifth toes. She had an arterial study done on September [address] Gavin revealed moderate to severe right femoral popliteal disease. Moderate left fem-pop disease. Patient is currently living at home alone. The last couple weeks, patient has been staying with her daughter. Patient does not use an assistive device to ambulate. Patient presented to [facility] emergency center and was fo und to be afebrile, heart rate 58, blood pressure 119/54, pulse ox 99% on room air. CBC was within normal limits, sodium 135, potassium 5.1, chloride 101, CO2 20, BUN 25 creatinine 0.93, blood sugar 84. Lactic acid 1.2. Liver function tests within normal limits. Albumin 4.3. Foot x-ray showed soft tissue swelling especially along the lateral forefoot. No underlying acute osseous abnormality seen. Patient was given a dose of Rocephin and started on heparin drip and IV fluids. Patient started on Kefzol and consult with vascular surgeon for PAD. CTA abdomen aorta with runoff revealed peripheral vascular disease with post stenotic dilatation noted of the celiac axis. Segmental occlusion of the right popliteal artery. high-grade stenosis present at the left popliteal artery. Atheromatous changes present bilaterally. Trifurcation vessels enhance on the left. Peroneal artery on the right does not enhance the same degree as the anterior tibial and posterior tibial arteries. 09/22, patient has minimal claudication leg, patient has full congestion whenever she drops the leg in her sitting position, patient does not have any shortness of breath of cough, plans for thrombectomy on Tuesday, patient currently is on IV heparin family is at bedside, no chest pain no palpitations, no GI bleed September 23: Patient does not have any new leg pain, the necrosis on the fifth toe remains to be the same, L less than the size of her pinky, patient doesn't have chest pain shortness of breath, patient scheduled for thrombectomy as expected tomorrow, IV heparin sign change , no falls no diarrhea no lightheadedness, hemoglobin at 11.4 from 11.7, platelet count 310, creatinine of 0.063 glucose 94 09/24: Patient is status post atherectomy right superficial femoral popliteal arteries with balloon angioplasty performed today by Dr. Blackmon. Patient has been afebrile, heart rate 54, blood pressure 188/49, pulse ox 97% on room air. Repeat lab work reveals creatinine 0.53. Patient is on aspirin 81 mg daily, Plavix 75 mg daily. We will increase her hydrochlorothiazide 25 mg daily. Patient is seen in the immediate postop period and is complaining of pain to her right lower extremity. She does have a good dorsalis pedis pulse. Review of Systems Constitutional: Reports fatigue, Denies chills, Denies fever, Denies poor appetite, Denies weakness Eyes: denies blurred vision, denies pain Ears, nose, mouth and throat: Denies dysphagia, Denies headache, Denies nasal congestion, Denies nasal discharge, Denies sore throat Cardiovascular: Denies chest pain, Denies decreased exercise tolerance, Denies dyspnea on exertion, Denies edema, Denies leg edema, Denies lightheadedness, Denies shortness of breath, Denies syncope Respiratory: Denies cough, Denies cough with sputum, Denies dyspnea, Denies excessive sputum, Denies hemoptysis, Denies home oxygen, Denies respiratory infections, Denies wheezing Gastrointestinal: Denies abdominal pain, Denies diarrhea, Denies nausea, Denies vomiting Genitourinary: Denies dysuria, Denies hematuria, Denies urgency, Denies urinary frequency Musculoskeletal: Reports gait dysfunction, Reports muscle weakness, Denies frequent falls, Denies myalgias, reports pain to right foot Integumentary: Reports wounds, Denies pruritus, Denies rash Neurological: Denies change in mentation, Denies confusion, Denies numbness, Denies weakness Psychiatric: Denies anxiety, Denies depression Endocrine: Denies fatigue, Denies weight change Objective - Vital Signs Vital signs: Vital Signs Temp 97.7 F 09/24/19 04:56 Pulse 54 L 09/24/19 04:56 Resp 18 09/24/19 04:56 BP 166/84 09/24/19 08:04 Pulse Ox 97 09/24/19 04:56 Intake & Output 09/23/19 09/24/19 09/24/19 18:59 06:59 18:59 Intake Total 1182.436 49.107 200 Balance 1182.436 49.107 200 Intake: IV 253.44 200 Heparin Sod,Pork in 0.45% 43.44 NaCl 25,000 unit In 0.45 % NaCl 1 250ml.bag @ 12 UNITS/KG/HR 5.443 mls/hr IV .Q24H EREN Rx#: [id number] Sodium Chloride 0.9% 1, 160 000 ml @ 20 mls/hr IV . Q24H EREN Rx#:[id number] ceFAZolin 1,000 mg In 50 Sodium Chloride 0.9% 50 ml @ 100 mls/hr IVPB Q12HR EREN Rx#:[id number] Intake, IV Titration 128.996 49.107 Amount Heparin Sod,Pork in 0.45% 128.996 49.107 NaCl 25,000 unit In 0.45 % NaCl 1 250ml.bag @ 12 UNITS/KG/HR 5.443 mls/hr IV .Q24H EREN Rx#: [id number] Oral 800 Other: Voiding Method Bedside Commode # Voids 2 4 # Bowel Movements 1 0 - Exam - Constitutional General appearance: Present: cooperative, no acute distress, thin - EENT Eyes: Present: EOMI, PERRLA ENT: Present: NA/AT, normal oropharynx - Neck Neck: Present: normal ROM - Respiratory Respiratory: bilateral: CTA - Cardiovascular Rhythm: regular Abnormal Heart Sounds: 3/6 systolic murmur right sternal border, Absent: diastolic murmur, rub, S3 Gallop, S4 Gallop, click, other - Gastrointestinal General gastrointestinal: Present: normal bowel sounds - Integumentary Integumentary Comment(s): Fifth toe right side, with small necrosis, no drainage, the first crease on the bottom plantar first toe, shows a linear fissure, healing no discharge Dorsalis pedis palpable - Neurologic Neurologic: Present: CNII-XII intact - Musculoskeletal Musculoskeletal: Present: gait normal, strength equal bilaterally - Psychiatric Psychiatric: Present: A&O x's 3, appropriate affect, intact judgment & insight - Labs CBC & Chem 7: 09/23/19 07:28 09/24/19 12:18 Labs: Abnormal Lab Results - Last 24 Hours (Table) 09/23/19 09/23/19 Range/Units 14:22 21:11 APTT 46.0 H 60.7 H (22.0-30.0) sec Microbiology - Last 24 Hours (Table) 09/20/19 13:20 Blood Culture - Preliminary Blood No Growth after 72 hours Assessment and Plan Plan: 1. Peripheral arterial disease with ulceration to the right foot. Consult with vascular surgery appreciated. Patient is status post balloon angioplasty. Continue aspirin, Plavix, Lipitor. 2. Hypertension. Continue Lopressor 25 mg twice daily. 3. Hyperlipidemia. Continue Lipitor 10 mg at bedtime. 4. Hypothyroidism. Continue levothyroxine 50 g daily. 5. Dementia with recurrent depression. Continue Paxil 20 mg daily. 6. DVT prophylaxis. Heparin. 7. GI prophylaxis. Pepcid. Discharge plan: Home with home care or subacute rehab. Impression and plan of care have been directed as dictated by the signing steven carrillo. Camrela Mccoy nurse practitioner acting as scribe for signing physician.
[2019-09-24] MEDS: SODIUM CHLORIDE 0.9% 1,000 ML IV SCH (17:53)
[2019-09-24] MEDS: ASPIRIN 81 MG PO SCH (18:08)
[2019-09-24 18:18] LABS: HCT 35.3 % (34.0-46.0); HGB 11.3 gm/dL (11.4-16.0); Hypochromasia Slight; MCH 31.8 pg (25.0-35.0); MCHC 32.1 g/dL (31.0-37.0); MCV 99.1 fL (80.0-100.0); Mean Platelet Volume 7.7; Platelet Count 306 k/uL (150-450); RBC 3.56 m/uL (3.80-5.40); RDW 15.8 % (11.5-15.5); WBC 7.9 k/uL (3.8-10.6)
[2019-09-24] MEDS: ATORVASTATIN 10 MG TAB PO SCH (20:34)
[2019-09-24] MEDS: PARoxetine 20 MG TAB PO SCH (20:34)
[2019-09-25] MEDS: LEVOTHYROXINE 50 MCG TAB PO SCH (06:14)
[2019-09-25 07:14] LABS: Basophils # (A) 0.1 k/uL (0-0.2); Basophils % (A) 1 %; Eosinophils # (A) 0.1 k/uL (0-0.7); Eosinophils % (A) 1 %; HCT 32.1 % (34.0-46.0); HGB 10.4 gm/dL (11.4-16.0); Lymphocytes # (A) 1.7 k/uL (1.0-4.8); Lymphocytes % (A) 26 %; MCH 31.5 pg (25.0-35.0); MCHC 32.4 g/dL (31.0-37.0); MCV 97.5 fL (80.0-100.0); Mean Platelet Volume 7.7; Monocytes # (A) 0.4 k/uL (0-1.0); Monocytes % (A) 6 %; Neutrophils # (A) 4.3 k/uL (1.3-7.7); Neutrophils % (A) 64 %; Platelet Count 274 k/uL (150-450); RDW 15.8 % (11.5-15.5); WBC 6.8 k/uL (3.8-10.6)
[2019-09-25 07:19] LABS: African American GFR (CKD) >90 (>60 ml/min/1.73 sqM); Anion Gap 8 mmol/L; Blood Urea Nitrogen 11 mg/dL (7-17); Calcium 9.4 mg/dL (8.4-10.2); Carbon Dioxide 25 mmol/L (22-30); Chloride 106 mmol/L (98-107); Glucose 104 mg/dL (74-99); Non-African American GFR(CKD) 87 (>60 ml/min/1.73 sqM); Potassium 4.1 mmol/L (3.5-5.1); Sodium 139 mmol/L (137-145)
[2019-09-25] MEDS: DOCUSATE 100 MG CAP PO SCH (08:10)
[2019-09-25] MEDS: FAMOTIDINE 20 MG TAB PO SCH (08:10)
[2019-09-25] MEDS: ASPIRIN 81 MG PO SCH (08:10)
[2019-09-25] MEDS: ACETAMINOPHEN TAB 325 MG TAB PO PRN (08:10)
[2019-09-25] MEDS: METOPROLOL TARTRATE 25 MG TAB PO SCH (08:10)
[2019-09-25 08:27] VITALS: BP 135/62; PULSE 71; TEMP 97.9
[2019-09-25] MEDS ORDERED: HYDROCHLOROTHIAZIDE 12.5 MG CAP PO SCH (09:00)
[2019-09-25] MEDS ORDERED: CLOPIDOGREL 75 MG TAB PO SCH (09:00)
[2019-09-25] MEDS ORDERED: HYDROCHLOROTHIAZIDE 25 MG TAB PO SCH (09:00)
--- NOTE | 2019-09-25 09:14 | IR ---
Fluoroscopy HISTORY: Peripheral vascular occlusive disease 5 minutes fluoroscopy time supplied to the referring clinician. 629 intraoperative C-arm images docu ment the procedure. See dictated report from vascular surgery.
--- NOTE | 2019-09-25 13:12 | P.PN ---
Subjective Progress Note Date: 09/25/19 Principal diagnosis: #1 right lower extremity critical limb ischemia with toe wounds #2 severe bilateral lower extremity peripheral artery disease Patient seen and evaluated sitting up in chair. Yesterday patient had cannulation of right femoral artery, right femoral angiogram, and atherectomy of the right superficial femoral popliteal arteries with balloon angioplasty. Noemy ent denies any shortness of breath or chest pain. Patient states pain improved in right lower extremity. Patient has been up ambulating with walker. Denies any bleeding from right groin. Today's Hemoglobin 10.4, hematocrit 32.1, WBC 6.8. Objective - Vital Signs Vital signs: Vital Signs Temp 97.9 F 09/25/19 07:45 Pulse 71 09/25/19 07:45 Resp 18 09/25/19 07:45 BP 135/62 09/25/19 07:45 Pulse Ox 97 09/25/19 07:45 Intake & Output 09/24/19 09/25/19 09/25/19 18:59 06:59 18:59 Intake Total 318 1120 Balance 318 1120 Weight 49.5 kg Intake: IV 200 260 Sodium Chloride 0.9% 1, 160 000 ml @ 20 mls/hr IV . Q24H EREN Rx#:[id number] ceFAZolin 2 gm In Sodium 100 Chloride 0.9% 50 ml @ 100 mls/hr IVPB Q8HR EREN Rx# :[id number] Oral 118 860 Other: Voiding Method Bedside Commode Toilet # Voids 1 - Exam General appearance: The patient is alert, oriented, in no acute distress. HET: Head is normocephalic and atraumatic. Pupils are equal and reactive. Oropharynx is clear without lesions. Neck: Supple without lymphadenopathy. Trachea midline. Heart: S1 S2. Regular rate and rhythm. Lungs: No crackles or wheezes are heard. Abdomen: Soft, nontender, nondistended with bowel sounds. No peritoneal signs. No palpable organomegaly or masses. Extremities: Normal skin color and turgor, bilateral extremities warm to touch. Bruising noted in the right groin, with no palpable hematoma or active bleeding. Palpable right femoral popliteal and TP pulses, multiphasic femoral, popliteal, DP and PT signals bilaterally. Neurological: No focal deficits. Strength and sensation are grossly intact. - Labs CBC & Chem 7: 09/25/19 06:15 11/26/19 06:15 Labs: Abnormal Lab Results - Last 24 Hours (Table) 09/24/19 09/24/19 09/25/19 Range/Units 05:40 12:18 06:15 RBC 3.56 L (3.80-5.40) m/uL Hgb 11.3 L (11.4-16.0) gm/dL Hct (34.0-46.0) % RDW 15.8 H (11.5-15.5) % Chloride 111 H (98-107) mmol/L Glucose 102 H 104 H (74-99) mg/dL 09/25/19 Range/Units 06:15 RBC 3.30 L (3.80-5.40) m/uL Hgb 10.4 L (11.4-16.0) gm/dL Hct 32.1 L (34.0-46.0) % RDW 15.8 H (11.5-15.5) % Chloride (98-107) mmol/L Glucose (74-99) mg/dL Microbiology - Last 24 Hours (Table) 09/20/19 13:20 Blood Culture - Preliminary Blood No Growth after 96 hours Assessment and Plan Assessment: #1 status post right femoral angiogram and atherectomy right superficial femoral-popliteal arteries with balloon angioplasty for right lower extremity critical limb ischemia with toe wounds #2 severe bilateral lower extremity peripheral arterial disease #3 hypertension #4 hypothyroidism #5 dementia Plan: Patient will be discharged home today with home care. Patient to go home on Plavix, baby aspirin, and Simvastatin 40 mg daily. Patient to follow-up with Dr. Lo in office in 2 weeks. Patient to refrain from tub baths, no heavy lifting or strenuous exercise. The above dictated assessment and findings were discussed with Rashi Chen. The impression and plan of care have been directed as dictated.
--- NOTE | 2019-09-25 14:53 | P.DS ---
Providers Date of admission: 09/21/19 15:15 Expected date of discharge: 09/25/19 Attending physician: Jing Araujo Consults: 09/20/19 15:50 Consult Physician Routine Consulting Provider: Garret Lo Consult Reason/Comments: PAD, mod to severe femoral popliteal arterial dz, small area of necrosis Do you want consulting provider notified?: Yes Primary care physician: [facility] Course: This is an 84-year-old female newly established with Dr. Araujo/Anjana with past medical history of dementia, hyperlipidemia, hypertension, hypothyroidism. Patient has had a small wound to the right fifth toe for approximately one month. It has become very painful and red. Patient is unable to bear weight and walk normally. She has been limping due to the pain in the toe. She is also noted to have small wounds to the plantar surface base of the right great toe, fourth and fifth toes. She had an arterial study done on September [address] Gavin revealed moderate to severe right femoral popliteal disease. Moderate left fem-pop disease. Patient is currently living at home alone. The last couple weeks, patient has been staying with her daughter. Patient does not use an assistive device to ambulate. Patient presented to [facility] emergency center and was found to be afebrile, heart rate 58, blood pressure 119/54, pulse ox 99% on room air. CBC was within normal limits, sodium 135, potassium 5.1, chloride 101, CO2 20, BUN 25 creatinine 0.93, blood sugar 84. Lactic acid 1.2. Liver function tests within normal limits. Albumin 4.3. Foot x-ray showed soft tissue swelling especially along the lateral forefoot. No underlying acute osseous abnormality seen. Patient was given a dose of Rocephin and started on heparin drip and IV fluids. Patient started on Kefzol and consult with vascular surgeon for PAD. CTA abdomen aorta with runoff revealed peripheral vascular disease with post stenotic dilatation noted of the celiac axis. Segmental occlusion of the right popliteal artery. high-grade stenosis present at the left popliteal artery. Atheromatous changes present bilaterally. Trifurcation vessels enhance on the left. Peroneal artery on the right does not enhance the same degree as the anterior tibial and posterior tibial arteries. 09/22, patient has minimal claudication leg, patient has full congestion whenever she drops the leg in her sitting position, patient does not have any shortness of breath of cough, plans for thrombectomy on Tuesday, patient gerson luis is on IV heparin family is at bedside, no chest pain no palpitations, no GI bleed September 23: Patient does not have any new leg pain, the necrosis on the fifth toe remains to be the same, L less than the size of her pinky, patient doesn't have chest pain shortness of breath, patient scheduled for thrombectomy as expected tomorrow, IV heparin sign change , no falls no diarrhea no lightheade dness, hemoglobin at 11.4 from 11.7, platelet count 310, creatinine of 0.063 glucose 94 09/24: Patient is status post atherectomy right superficial femoral popliteal arteries with balloon angioplasty performed today by Dr. Blackmon. Patient has been afebrile, heart rate 54, blood pressure 188/49, pulse ox 97% on room air. Repeat lab work reveals creatinine 0.53. Patient is on aspirin 81 mg daily, Plavix 75 mg daily. We will increase her hydrochlorothiazide 25 mg daily. Patient is seen in the immediate postop period and is complaining of pain to her right lower extremity. She does have a good dorsalis pedis pulse. 09/25: Patient has been seen by vascular surgery and cleared for discharge home. Patient continues to have a good pulse, right dorsalis pedis. Patient denies any shortness of breath, no chest pain. She is very anxious to go home. She would prefer to go home versus subacute rehab. Daughter states that she will be staying with her when she goes home. Patient will be discharged home today in stable condition. Discharge diagnoses: 1. Peripheral arterial disease with ulceration to the right foot. 2. Hypertension. 3. Hyperlipidemia. 4. Hypothyroidism. 5. Dementia with recurrent depression. Discharge plan: Home with [facility]. Daughter plans to stay with her after discharge. Impression and plan of care have been directed as dictated by the signing physician. Carmela Mccoy nurse practitioner acting as scribe for signing physician. Patient Condition at Discharge: Good Plan - Discharge Summary New Discharge Prescriptions: New Hydrochlorothiazide [Hydrodiuril] 25 mg PO DAILY #30 tab Clopidogrel [Plavix] 75 mg PO DAILY #30 tab Aspirin EC [Ecotrin Low Dose] 81 mg PO DAILY #30 tablet.dr Atorvastatin [Lipitor] 40 mg PO HS #30 tablet Continue PARoxetine [Paxil] 20 mg PO DAILY Metoprolol Tartrate [Lopressor] 25 mg PO BID Levothyroxine Sodium [Synthroid] 50 mcg PO DAILY Discontinued Hydrochlorothiazide 12.5 mg PO DAILY Cephalexin [Keflex] 500 mg PO QID Sulfamethox-Tmp 800-160Mg [Bactrim DS 800-160 mg] 1 tab PO BID Simvastatin [Zocor] 20 mg PO HS Discharge Medication List Levothyroxine Sodium [Synthroid] 50 mcg PO DAILY 09/20/19 [History] Metoprolol Tartrate [Lopressor] 25 mg PO BID 09/20/19 [History] PARoxetine [Paxil] 20 mg PO DAILY 09/20/19 [History] Aspirin EC [Ecotrin Low Dose] 81 mg PO DAILY #30 tablet. 09/25/19 [Rx] Atorvastatin [Lipitor] 40 mg PO HS #30 tablet 09/25/19 [Rx] Clopidogrel [Plavix] 75 mg PO DAILY #30 tab 09/25/19 [Rx] Hydrochlorothiazide [Hydrodiuril] 25 mg PO DAILY #30 tab 09/25/19 [Rx] Follow up Appointment(s)/Referral(s): Jing Araujo MD [STAFF PHYSICIAN] - 10/01/19 11:00 am (Tuesday) Garret Lo DO [Doctor of Osteopathic Medicine] - 10/04/19 1:45 pm ([facility]) [facility], [NON-STAFF] - Patient Instructions/Handouts: Peripheral Vascular Angioplasty (DC) Discharge Disposition: HOME WITH HOME HEALTH SERVICES
== END 2019-09-25 11:22 | disposition home health service (06) | DRG 271 ==
LOC: EC 11:23 → 4MS4W 15:05 → OBSVTOIN 09-21 15:15 → 3SCARD 09-24 08:48
PROVIDERS: ADMIT Family Medicine; ATTEND Family Medicine
PROC: 04CM3ZZ Extirpation of Matter from Right Popliteal Artery, Percutaneous Approach (ICD-10-PCS; 2019-09-24)
PROC: 047K3ZZ Dilation of Right Femoral Artery, Percutaneous Approach (ICD-10-PCS; 2019-09-24)
PROC: 047M3ZZ Dilation of Right Popliteal Artery, Percutaneous Approach (ICD-10-PCS; 2019-09-24)
PROC: B41F1ZZ Fluoroscopy of Right Lower Extremity Arteries using Low Osmolar Contrast (ICD-10-PCS; 2019-09-24)
PROC: 04CK3ZZ Extirpation of Matter from Right Femoral Artery, Percutaneous Approach (ICD-10-PCS; principal; 2019-09-24 10:00)
DX: I70.235 Atherosclerosis of native arteries of right leg with ulceration of other part of foot (principal); F33.9 Major depressive disorder, recurrent, unspecified; I70.292 Other atherosclerosis of native arteries of extremities, left leg; L97.513 Non-pressure chronic ulcer of other part of right foot with necrosis of muscle; F03.90 Unspecified dementia, unspecified severity, without behavioral disturbance, psychotic disturbance, mood disturbance, and anxiety; E03.9 Hypothyroidism, unspecified; E78.5 Hyperlipidemia, unspecified; F41.9 Anxiety disorder, unspecified; I10 Essential (primary) hypertension; I99.8 Other disorder of circulatory system; Z79.890 Hormone replacement therapy; Z79.899 Other long term (current) drug therapy; Z90.710 Acquired absence of both cervix and uterus; Z82.3 Family history of stroke; Z82.49 Family history of ischemic heart disease and other diseases of the circulatory system; Z82.5 Family history of asthma and other chronic lower respiratory diseases; Z83.3 Family history of diabetes mellitus; Z82.0 Family history of epilepsy and other diseases of the nervous system; Z80.9 Family history of malignant neoplasm, unspecified
CPT/HCPCS: 36415; 37225; 75635; 80048; 80053; 83605; 85025; 85027; 85610; 85730; 87040; 96361; 96374; 96375; 99285

== ENCOUNTER → 2019-12-03 | Outpatient (CLI) | payer MEDICARE, BC ==
[2019-12-03 11:00] LABS: Basophils # (A) 0.1 k/uL (0-0.2); Basophils % (A) 2 %; Eosinophils # (A) 0.1 k/uL (0-0.7); Eosinophils % (A) 1 %; HCT 35.1 % (34.0-46.0); HGB 11.5 gm/dL (11.4-16.0); Lymphocytes # (A) 1.7 k/uL (1.0-4.8); Lymphocytes % (A) 26 %; MCH 31.5 pg (25.0-35.0); MCHC 32.9 g/dL (31.0-37.0); Mean Platelet Volume 8.2; Monocytes # (A) 0.5 k/uL (0-1.0); Monocytes % (A) 7 %; Neutrophils % (A) 61 %; Platelet Count 343 k/uL (150-450); RBC 3.65 m/uL (3.80-5.40); RDW 15.9 % (11.5-15.5); WBC 6.6 k/uL (3.8-10.6)
[2019-12-03 17:10] LABS: % Iron Saturation 31.96 (12.00-45.00); African American GFR (CKD) 90.9 (60.0-200.0); Albumin 4.2 g/dL (3.80-4.90); Albumin/Globulin Ratio 1.83 (1.60-3.17); Anion Gap 8.6 mmol/L (4.00-12.00); BUN/Creat Ratio 35.71 Ratio (12.00-20.00); Calcium 9.5 mg/dL (8.7-10.3); Carbon Dioxide 30.4 mmol/L (21.6-31.8); Chol/HDL Ratio 3.7; Globulin 2.3 g/dL (1.6-3.3); Non-African American GFR(CKD) 78.5 (60.0-200.0); Potassium 3.7 mmol/L (3.5-5.5); Total Bilirubin 0.8 mg/dL (0.2-1.2); Total Protein 6.5 g/dL (6.2-8.2); Uric Acid 8.9 mg/dL (2.9-7.7)
[2019-12-03 17:17] LABS: T4, Free (Free Thyroxine) 1.4 ng/dL (0.80-1.80)
[2019-12-03 17:41] LABS: Ferritin 363.2 ng/mL (10.0-291.0)
== END | disposition home or self-care (01) ==
LOC: LABWHC1 09:22
PROVIDERS: ATTEND Family Medicine
DX: E78.5 Hyperlipidemia, unspecified (principal); E03.9 Hypothyroidism, unspecified; D64.9 Anemia, unspecified; I10 Essential (primary) hypertension; R06.02 Shortness of breath
CPT/HCPCS: 36415; 80053; 80061; 82728; 83540; 83550; 83880; 84439; 84443; 84550; 85025

== ENCOUNTER → 2019-12-20 | Outpatient (CLI) | payer MEDICARE, BC ==
[2019-12-20 17:30] LABS: Potassium 3.7 mmol/L (3.5-5.1)
[2019-12-20 18:00] LABS: Basophils % (A) 0 %; Eosinophils % (A) 0 %; HGB 11.6 gm/dL (11.4-16.0); Lymphocytes # (A) 2.4 k/uL (1.0-4.8); Lymphocytes % (A) 24 %; MCH 31.2 pg (25.0-35.0); MCHC 33.1 g/dL (31.0-37.0); MCV 94.4 fL (80.0-100.0); Mean Platelet Volume 8.4; Monocytes # (A) 0.8 k/uL (0-1.0); Monocytes % (A) 8 %; Neutrophils # (A) 6.6 k/uL (1.3-7.7); Neutrophils % (A) 65 %; Platelet Count 375 k/uL (150-450); RBC 3.71 m/uL (3.80-5.40); RDW 15.9 % (11.5-15.5); WBC 10.1 k/uL (3.8-10.6)
== END | disposition home or self-care (01) ==
LOC: LABPAT 16:49
PROVIDERS: ATTEND Surgery
DX: Z01.812 Encounter for preprocedural laboratory examination (principal); I74.3 Embolism and thrombosis of arteries of the lower extremities
CPT/HCPCS: 80051; 82565; 84520; 85025

== ENCOUNTER 2019-12-21 12:41 | Day surgery (SDC) | payer MEDICARE, BC ==
[2019-12-21] MEDS ORDERED: SODIUM CHLORIDE 0.9% 1,000 ML IV ONE (13:30)
[2019-12-21] MEDS ORDERED: MIDAZOLAM 2 MG/2 ML VIAL IVP ONE (14:36)
[2019-12-21] MEDS ORDERED: LIDOCAINE 1% INJ 10MG/ML (20 ML MDV) SQ ONE (14:41)
[2019-12-21] MEDS ORDERED: IOPAMIDOL-250 100ML BTL INTRAARTER ONE (15:03)
--- NOTE | 2019-12-21 15:13 | P.OP ---
Date of Procedure: 12/21/19 Description of Procedure: Preoperative diagnosis: Right lower extremity disabling claudication, rest pain [place] classification 4 Postop diagnosis: Same Procedure: Aortogram with bilateral lower extremity runoffs via left common femoral artery access under ultrasound guidance. Right femoral, popliteal and tibial selective angiograms Placement of catheter to the superficial femoral artery Surgeon: Gustavo Anesthesia: Moderate sedation times 26 minutes Estimated blood loss: Minimal Complications: None Condition: Stable Findings: Aorta: Patent without any stenosis Iliacs: Bilateral common, internal and external iliac arteries are patent without any stenosis Femorals: Bilateral common femoral, profunda arteries are patent with minimal disease and stenosis. The right SFA is occluded at the Darrel's canal extending into the popliteal and below knee on the right. Left SFA has significant disease with stenosis at the midportion of the SFA measuring greater than 85%. Three-vessel runoff to the ankle on the left. Slow filling of the right tibioperoneal trunk with decreased flow to the tibial vessels the right. There is filling of the posterior tibial and anterior tibial artery to the ankle. Operative narrative: After written informed consent was obtained the patient all risks benefits competitions were described the patient is brought to the [employer] and laid in a supine position. The area of the left groin was prepped and draped in the usual sterile fashion. Local anesthesia with moderate sedation was performed with continuous pulse ox monitoring and EKG monitoring. Utilizing ultrasound the left common femoral artery was visualized and shown to be patent without any significant plaque. Utilizing a multipurpose needle under ultrasound guidance the artery was accessed. Guidewire was placed followed by 5-[place] sheath. 035 Glidewire was then placed into the aorta followed by pigtail catheter. Angiogram was then obtained of the aorta. Catheter was then placed at the bifurcation and lower extremity runoffs were obtained. Once completed all guidewires, catheters and sheaths were removed and pressure was placed for hemostasis. Patient tolerated procedure well was sent to PACU for recovery Plan - Discharge Summary New Discharge Prescriptions: No Action RX: PARoxetine [Paxil] 20 mg PO DAILY RX: Metoprolol Tartrate [Lopressor] 25 mg PO BID RX: Levothyroxine Sodium [Synthroid] 50 mcg PO DAILY RX: Hydrochlorothiazide [Hydrodiuril] 25 mg PO DAILY #30 tab RX: Clopidogrel [Plavix] 75 mg PO DAILY #30 tab RX: Aspirin EC [Ecotrin Low Dose] 81 mg PO DAILY #30 tablet. RX: Atorvastatin [Lipitor] 40 mg PO HS #30 tablet RX: Pentoxifylline 400 mg PO TID Discharge Medication List RX: Levothyroxine Sodium [Synthroid] 50 mcg PO DAILY 09/20/19 [History] RX: Metoprolol Tartrate [Lopressor] 25 mg PO BID 09/20/19 [History] RX: PARoxetine [Paxil] 20 mg PO DAILY 09/20/19 [History] RX: Aspirin EC [Ecotrin Low Dose] 81 mg PO DAILY #30 tablet. 09/25/19 [Rx] RX: Atorvastatin [Lipitor] 40 mg PO HS #30 tablet 09/25/19 [Rx] RX: Clopidogrel [Plavix] 75 mg PO DAILY #30 tab 09/25/19 [Rx] RX: Hydrochlorothiazide [Hydrodiuril] 25 mg PO DAILY #30 tab 09/25/19 [Rx] RX: Pentoxifylline 400 mg PO TID 12/21/19 [History]
[2019-12-21 15:51] VITALS: RESP 18
--- NOTE | 2019-12-21 15:59 | IR ---
Fluoroscopy HISTORY: Peripheral vascular disease 3 Minutes fluoroscopy time supplied to the referring clinician. 214 intraoperative C-arm images docu ment the procedure. See dictated report from vascular surgery.
[2019-12-21] MEDS: PENTOXIFYLLINE 400 MG TABLET.ER PO SCH ×2 (16:01→20:18)
[2019-12-21] MEDS: METOPROLOL TARTRATE 25 MG TAB PO SCH (20:18)
[2019-12-21] MEDS ORDERED: ATORVASTATIN 40 MG TAB PO SCH (21:00)
[2019-12-22] MEDS ORDERED: LEVOTHYROXINE 50 MCG TAB PO SCH (06:30)
[2019-12-22 08:01] VITALS: BP 129/74; PULSE 75; TEMP 98.1
[2019-12-22] MEDS: METOPROLOL TARTRATE 25 MG TAB PO SCH (08:51)
[2019-12-22] MEDS: PENTOXIFYLLINE 400 MG TABLET.ER PO SCH (08:52)
[2019-12-22] MEDS ORDERED: CLOPIDOGREL 75 MG TAB PO SCH (09:00)
[2019-12-22] MEDS ORDERED: ASPIRIN 81 MG PO SCH (09:00)
[2019-12-22] MEDS ORDERED: HYDROCHLOROTHIAZIDE 25 MG TAB PO SCH (09:00)
[2019-12-22] MEDS ORDERED: PARoxetine 20 MG TAB PO SCH (09:00)
--- NOTE | 2019-12-28 19:11 | P.GSHP ---
History of Present Illness H&P Date: 12/21/19 Chief Complaint: Right lower extremity pain 84-year-old female with history of right lower extremity revascularization secondary to critical limb ischemia presented to the office for evaluation and was found to have new onset severe pain and possible recurrence of right lower extremity ischemia. Her VANDANA's in the office demonstrated marked decrease to 0.25 on the right and 0.5 on the left. She presents today for aortogram with runoff. - Review of Systems All systems: negative (what is mentioned in the PMH or HPI) Past Medical History Past Medical History: Dementia, Hyperlipidemia, Hypertension, Thyroid Disorder Additional Past Medical History / Comment(s): Overactive thyroid History of Any Multi-Drug Resistant Organisms: None Reported Past Surgical History: Adenoidectomy, Hysterectomy, Tonsillectomy Additional Past Surgical History / Comment(s): Hemmroid surgery Past Anesthesia/Blood Transfusion Reactions: No Reported Reaction Past Psychological History: Anxiety, Depression Smoking Status: Never smoker Past Alcohol Use History: None Reported Additional Past Alcohol Use History / Comment(s): Patient is a lifelong nonsmoker, no marijuana or illicit drug use, no alcohol use. Patient lives at home alone. Past Drug Use History: None Reported - Past Family History Father Additional Family Medical History / Comment(s): Father from a stroke. Mother Additional Family Medical History / Comment(s): Mother at age 69 from some type of cancer and history of asthma. Brother(s) Additional Family Medical History / Comment(s): Patient had multiple brothers and all have had issues with dementia and strokes. Sister(s) Additional Family Medical History / Comment(s): Patient has 2 sisters one at age 82 from dementia and one at age 79 from coronary artery disease. Daughter(s) Additional Family Medical History / Comment(s): Patient has 3 children, one boy and 2 girls with no major medical problems. Medications and Allergies Home Medications Medication Instructions Recorded Confirmed Type Levothyroxine Sodium [Synthroid] 50 mcg PO DAILY 09/20/19 12/21/19 History Metoprolol Tartrate [Lopressor] 25 mg PO BID 09/20/19 12/21/19 History PARoxetine [Paxil] 20 mg PO DAILY 09/20/19 12/21/19 History Aspirin EC [Ecotrin Low Dose] 81 mg PO DAILY #30 tablet. 09/25/19 12/21/19 Rx Atorvastatin [Lipitor] 40 mg PO HS #30 tablet 09/25/19 12/21/19 Rx Clopidogrel [Plavix] 75 mg PO DAILY #30 tab 09/25/19 12/21/19 Rx Hydrochlorothiazide [Hydrodiuril] 25 mg PO DAILY #30 tab 09/25/19 12/21/19 Rx Pentoxifylline 400 mg PO TID 12/21/19 12/21/19 History Allergies Allergy/AdvReac Type Severity Reaction Status Date / Time No Known Allergies Allergy Verified 09/20/19 16:11 Surgical - Exam Vital Signs Temp Pulse Resp BP Pulse Ox 98.0 F 53 L 16 142/66 98 12/21/19 13:03 12/21/19 13:03 12/21/19 13:03 12/21/19 13:03 12/21/19 13:03 non palpable DP/PT pulses on the right. Good capillary refill on the left. - General well developed, well nourished, no distress - Eyes PERRL - Neck no masses - Respiratory normal expansion - Cardiovascular Rhythm: regular - Abdomen Abdomen: soft, non tender - Integumentary no rash - Neurologic no normal sensation - Psychiatric oriented to person, speech is normal Assessment and Plan Assessment: 1. Right lower extremity rest pain [place] classification 4 2. history of right lower extremity foot wounds- now healed 3. history of right lower extremity atherectomy 4. Dementia Plan: To [facility] [employer] for aortogram with runoff.
== END 2019-12-22 11:05 | disposition home or self-care (01) ==
LOC: CATHCVL 12:41 → 1SOBS 15:05 → CATHCVL 12-22 11:05
PROVIDERS: ATTEND Surgery
DX: I70.223 Atherosclerosis of native arteries of extremities with rest pain, bilateral legs (principal); I77.1 Stricture of artery; F03.90 Unspecified dementia, unspecified severity, without behavioral disturbance, psychotic disturbance, mood disturbance, and anxiety; E78.5 Hyperlipidemia, unspecified; I10 Essential (primary) hypertension; E05.90 Thyrotoxicosis, unspecified without thyrotoxic crisis or storm; F41.9 Anxiety disorder, unspecified; F32.9 Major depressive disorder, single episode, unspecified; Z79.890 Hormone replacement therapy; Z79.899 Other long term (current) drug therapy; Z79.82 Long term (current) use of aspirin; Z79.02 Long term (current) use of antithrombotics/antiplatelets; Z90.89 Acquired absence of other organs; Z90.710 Acquired absence of both cervix and uterus; Z98.890 Other specified postprocedural states; Z82.3 Family history of stroke; Z80.9 Family history of malignant neoplasm, unspecified; Z82.5 Family history of asthma and other chronic lower respiratory diseases; Z81.8 Family history of other mental and behavioral disorders; Z82.49 Family history of ischemic heart disease and other diseases of the circulatory system
CPT/HCPCS: 36200; 75625; 75716; 76937; C1769 ×4; C1894; J2250; J2001; Q9966

== ENCOUNTER 2020-05-12 12:31 | Emergency (ER) | payer MEDICARE, BC ==
[2020-05-12 12:39] VITALS: RESP 18; TEMP 97.7
--- NOTE | 2020-05-12 12:53 | ED ---
Upper Extremity HPI - General Chief Complaint: Extremity Injury, Upper Stated Complaint: R arm injury Time Seen by Provider: 05/12/20 12:45 Source: patient, family, RN notes reviewed Mode of arrival: ambulatory Limitations: no limitations - History of Present Illness Initial Comments: 85-year-old female presents emergency Department chief complaint right arm pain, bruising. Patient states that she believes she bumped it on something. Patient is taking Plavix. Patient digit bruising mild swelling. Minimal discomfort full range of motion. No extremity falls. - Related Data Home Medications Medication Instructions Recorded Confirmed Levothyroxine Sodium [Synthroid] 50 mcg PO DAILY 09/20/19 12/21/19 Metoprolol Tartrate [Lopressor] 25 mg PO BID 09/20/19 12/21/19 PARoxetine [Paxil] 20 mg PO DAILY 09/20/19 12/21/19 Pentoxifylline 400 mg PO TID 12/21/19 12/21/19 Previous Rx's Medication Instructions Recorded Aspirin EC [Ecotrin Low Dose] 81 mg PO DAILY #30 tablet. 09/25/19 Atorvastatin [Lipitor] 40 mg PO HS #30 tablet 09/25/19 Clopidogrel [Plavix] 75 mg PO DAILY #30 tab 09/25/19 Hydrochlorothiazide [Hydrodiuril] 25 mg PO DAILY #30 tab 09/25/19 Allergies Allergy/AdvReac Type Severity Reaction Status Date / Time No Known Allergies Allergy Verified 05/12/20 12:39 Review of Systems ROS Statement: Those systems with pertinent positive or pertinent negative responses have been documented in the HPI. ROS Other: All systems not noted in ROS Statement are negative. Past Medical History Past Medical History: Dementia, Hyperlipidemia, Hypertension, Thyroid Disorder Additional Past Medical History / Comment(s): Overactive thyroid History of Any Multi-Drug Resistant Organisms: None Reported Past Surgical History: Adenoidectomy, Hysterectomy, Tonsillectomy Additional Past Surgical History / Comment(s): Hemmroid surgery, circulation issues Past Anesthesia/Blood Transfusion Reactions: No Reported Reaction Past Psychological History: Anxiety, Depression Smoking Status: Never smoker Past Alcohol Use History: None Reported Past Drug Use History: None Reported - Past Family History Father Additional Family Medical History / Comment(s): Father from a stroke. Mother Additional Family Medical History / Comment(s): Mother at age 69 from some type of cancer and history of asthma. Brother(s) Additional Family Medical History / Comment(s): Patient had multiple brothers and all have had issues with dementia and strokes. Sister(s) Additional Family Medical History / Comment(s): Patient has 2 sisters one at age 82 from dementia and one at age 79 from coronary artery disease. Daughter(s) Additional Family Medical History / Comment(s): Patient has 3 children, one boy and 2 girls with no major medical problems. General Exam Limitations: no limitations General appearance: alert, in no apparent distress Head exam: Present: atraumatic, normocephalic, normal inspection Eye exam: Present: normal appearance, PERRL, EOMI. Absent: scleral icterus, conjunctival injection, periorbital swelling Respiratory exam: Present: normal lung sounds bilaterally. Absent: respiratory distress, wheezes, rales, rhonchi, stridor Cardiovascular Exam: Present: regular rate, normal rhythm, normal heart sounds. Absent: systolic murmur, diastolic murmur, rubs, gallop, clicks Extremities exam: Present: other (Right forearm there is large amount of ecchymosis, small area of swelling which is mildly tender with palpation radial pulses are equal bilaterally full range of motion of the right wrist, right hand and elbow) Neurological exam: Present: alert, oriented X3 Skin exam: Present: warm, dry, intact, normal color. Absent: rash Course Vital Signs 05/12/20 12:32 Temperature 97.7 F Pulse Rate 74 Respiratory 18 Rate O2 Sat by Pulse 98 Oximetry Medical Decision Making - Medical Decision Making 85-year-old presented for right forearm pain and swelling. This agent is a hematoma, ecchymosis causing discomfort no acute osseous fracture. Patient discharged in stable condition return parameters were discussed. Disposition Clinical Impression: Traumatic hematoma of right forearm Disposition: HOME SELF-CARE Condition: Stable Instructions (If sedation given, give patient instructions): Hematoma (ED) Additional Instructions: Please return to the Emergency Department if symptoms worsen or any other concerns. Is patient prescribed a controlled substance at d/c from ED?: No Referrals: Jing Araujo MD [Primary Care Provider] - 1-2 days Time of Disposition: 13:25
--- NOTE | 2020-05-12 13:21 | XR ---
Right forearm HISTORY: Swelling, pain 2 views the right forearm Bone mineralization, alignment are maintained. Widening the scapholunate distance is noted. Question an old ulnar styloid fracture, small ossific densities present at this level at the distal ulna. Poss ible arthropathy present within the elbow, small ossific density present medially is well-corticated and not felt likely to be acute. No evident elbow joint effusion. Osteoarthritic change present at th e carpometacarpal joint of the first digit. 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 There is soft tissue swelling. IMPRESSION: Soft tissue swelling. Scapholunate dissociation, consider wrist MRI as indicated.
[2020-05-12 13:45] VITALS: BP 138/52; PULSE 62
== END 2020-05-12 13:45 | disposition home or self-care (01) ==
LOC: EC 12:31
DX: S50.11XA Contusion of right forearm, initial encounter (principal); F03.90 Unspecified dementia, unspecified severity, without behavioral disturbance, psychotic disturbance, mood disturbance, and anxiety; E07.9 Disorder of thyroid, unspecified; I10 Essential (primary) hypertension; F41.9 Anxiety disorder, unspecified; F32.9 Major depressive disorder, single episode, unspecified; Z79.02 Long term (current) use of antithrombotics/antiplatelets; Z79.82 Long term (current) use of aspirin; Z79.899 Other long term (current) drug therapy; W22.8XXA Striking against or struck by other objects, initial encounter
CPT/HCPCS: 99283

== ENCOUNTER 2022-05-01 20:55 | Emergency (ER) | payer MEDICARE, BC ==
[2022-05-01 21:08] VITALS: BP 134/59; PULSE 61; RESP 18; TEMP 97.8
--- NOTE | 2022-05-01 21:56 | ED ---
General Adult HPI - General Chief complaint: Recheck/Abnormal Lab/Rx Stated complaint: Mental health eval/poss. prescription adjustment Time Seen by Provider: 05/01/22 21:33 Source: patient, family (Patient's daughter) Mode of arrival: ambulatory Limitations: physical limitation (Moderately severe dementia) - History of Present Illness Initial comments: 's patient is an 87-year-old woman with history of dementia brought here by family with the hope of having medication adjustment. The patient had moved to a new long-term care facility today and then was having problems with wandering from the facility. When people attempted to redirect her, she was pinching and attempting to strike them. This problem has been going on for months to years and was the reason that she was moved from her previous extended care facility. The facility tonight requested she be seen and see if there is a medication adjustment that could be made. The patient does have appointment coming in a couple of weeks with Dr. Araujo. When I interview the patient, she does not have any medical complaints. -: month(s) Severity scale (1-10): 0 Improves with: none Worsens with: none Associated Symptoms: denies other symptoms - Related Data Home Medications Medication Instructions Recorded Confirmed Levothyroxine Sodium [Synthroid] 50 mcg PO DAILY 09/20/19 12/21/19 Metoprolol Tartrate [Lopressor] 25 mg PO BID 09/20/19 12/21/19 PARoxetine [Paxil] 20 mg PO DAILY 09/20/19 12/21/19 Pentoxifylline 400 mg PO TID 12/21/19 12/21/19 Previous Rx's Medication Instructions Recorded Aspirin EC [Ecotrin Low Dose] 81 mg PO DAILY #30 tablet.dr 09/25/19 Atorvastatin [Lipitor] 40 mg PO HS #30 tablet 09/25/19 Clopidogrel [Plavix] 75 mg PO DAILY #30 tab 09/25/19 hydroCHLOROthiazide [Hydrodiuril] 25 mg PO DAILY #30 tab 09/25/19 Allergies Allergy/AdvReac Type Severity Reaction Status Date / Time codeine Allergy Unknown Verified 05/01/22 21:08 Review of Systems ROS Statement: Those systems with pertinent positive or pertinent negative responses have been documented in the HPI. ROS Other: All systems not noted in ROS Statement are negative. Limitations: ROS unobtainable due to patients medical condition (Dementia) Respiratory: Denies: dyspnea Cardiovascular: Denies: chest pain Gastrointestinal: Denies: abdominal pain Neurological: Denies: headache Psychiatric: Denies: homicidal thoughts, suicidal thoughts Past Medical History Past Medical History: Dementia, Hyperlipidemia, Hypertension, Thyroid Disorder Additional Past Medical History / Comment(s): Overactive thyroid History of Any Multi-Drug Resistant Organisms: None Reported Past Surgical History: Adenoidectomy, Hysterectomy, Tonsillectomy Additional Past Surgical History / Comment(s): Hemmroid surgery, circulation issues Past Anesthesia/Blood Transfusion Reactions: No Reported Reaction Past Psychological History: Anxiety, Depression Smoking Status: Never smoker Past Alcohol Use History: None Reported Past Drug Use History: None Reported - Past Family History Father Additional Family Medical History / Comment(s): Father from a stroke. Mother Additional Family Medical History / Comment(s): Mother at age 69 from some type of cancer and history of asthma. Brother(s) Additional Family Medical History / Comment(s): Patient had multiple brothers and all have had issues with dementia and strokes. Sister(s) Additional Family Medical History / Comment(s): Patient has 2 sisters one at age 82 from dementia and one at age 79 from coronary artery disease. Daughter(s) Additional Family Medical History / Comment(s): Patient has 3 children, one boy and 2 girls with no major medical problems. General Exam Limitations: no limitations General appearance: alert, in no apparent distress Head exam: Present: atraumatic, normocephalic Eye exam: Present: normal appearance. Absent: scleral icterus, conjunctival injection Neck exam: Present: normal inspection, full ROM. Absent: tenderness Respiratory exam: Present: normal lung sounds bilaterally. Absent: respiratory distress, wheezes, rales, rhonchi, stridor Cardiovascular Exam: Present: regular rate, normal rhythm, systolic murmur. Absent: diastolic murmur, rubs, gallop GI/Abdominal exam: Present: soft. Absent: distended, tenderness, guarding, rebound, rigid Extremities exam: Present: normal inspection, normal capillary refill. Absent: pedal edema, calf tenderness Back exam: Present: normal inspection. Absent: vertebral tenderness Neurological exam: Present: alert Skin exam: Present: warm, dry, intact, normal color. Absent: rash Course Vital Signs 05/01/22 21:06 Temperature 97.8 F Pulse Rate 61 Respiratory 18 Rate Blood Pressure 134/59 O2 Sat by Pulse 94 L Oximetry Medical Decision Making - Medical Decision Making Patient is an 87-year-old woman whose family brings her with hope of having medication change. The patient has been wandering from her [facility] facility. Patient will stop tell staff that she is trying to get to her home. She then has some low-level aggression when they attempt to redirect her. Currently patient has no complaints and is not exhibiting any aggressive behavior. Family would like to try medication change, I did suggest having some lab tests but they state that she has appointment, Dr. Araujo nail would like to forego these tonight given the hour. Will adjust the patient's Depakote and told him that they can increase the Xanax that she is taking. Discussed appropriate follow-up and return parameters. Disposition Clinical Impression: Dementia Disposition: HOME SELF-CARE Condition: Good Instructions (If sedation given, give patient instructions): Dementia (ED) Is patient prescribed a controlled substance at d/c from ED?: No Referrals: Jing Araujo MD [Primary Care Provider] - 1-2 days Time of Disposition: 21:50
== END 2022-05-01 22:29 | disposition home or self-care (01) ==
LOC: EC 20:55
DX: F03.90 Unspecified dementia, unspecified severity, without behavioral disturbance, psychotic disturbance, mood disturbance, and anxiety (principal); I10 Essential (primary) hypertension; E78.5 Hyperlipidemia, unspecified; E07.9 Disorder of thyroid, unspecified; F32.A Depression, unspecified; F41.9 Anxiety disorder, unspecified; Z79.82 Long term (current) use of aspirin; Z79.02 Long term (current) use of antithrombotics/antiplatelets; Z79.890 Hormone replacement therapy; Z79.899 Other long term (current) drug therapy
CPT/HCPCS: 99283

== ENCOUNTER 2022-06-17 18:04 | Emergency (ER) | payer MEDICARE, BC ==
--- NOTE | 2022-06-17 18:10 | ED ---
General Adult HPI - General Stated complaint: fall Time Seen by Provider: 06/17/22 18:05 Source: patient, EMS, RN notes reviewed Mode of arrival: EMS Limitations: no limitations - History of Present Illness Initial comments: Patient is a pleasant 87-year-old female presenting to the emergency department with concerns with fall. Patient states injury occurred less than. Patient states she tripped and landed on her right arm. Patient has discomfort just distal to her right elbow. Patient denies any other injury area or concern. No head injury or loss of consciousness. No neck or back pain. No dyspnea. - Related Data Home Medications Medication Instructions Recorded Confirmed Levothyroxine Sodium [Synthroid] 50 mcg PO [id number] 09/20/19 06/17/22 Pentoxifylline 400 mg PO TID@0800,1200,199912/21/19 06/17/22 ALPRAZolam [Xanax] 0.5 mg PO TID@0800,1400,1900 06/17/22 06/17/22 Acetaminophen Tab [Tylenol] 650 mg PO Q4H PRN 06/17/22 06/17/22 Aspirin EC [Ecotrin Low Dose] 81 mg PO DAILY@0806/17/22 06/17/22 Clopidogrel [Plavix] 75 mg PO DAILY@79906/17/22 06/17/22 DULoxetine HCL [Cymbalta] 30 mg PO BID@0800,199906/17/22 06/17/22 Divalproex ER [Depakote ER] 250 mg PO BID@0800,199906/17/22 06/17/22 Docusate [Colace] 100 mg PO DAILY@79906/17/22 06/17/22 Ergocalciferol [Vitamin D2 (1250 1,250 mcg PO TH 06/17/22 06/17/22 Mcg = 14342 Iu)] Stephanie-Lanta 15 ml PO BID PRN 06/17/22 06/17/22 Kaolin Pectin 15 ml PO TID PRN 06/17/22 06/17/22 Magnesium Hydroxide [Milk of 2,400 mg PO DAILY PRN 06/17/22 06/17/22 Magnesia] Multivitamins, Thera [Multivitamin 1 tab PO DAILY@0800 06/17/22 06/17/22 (formulary)] Propranolol HCl [Propranolol HCl 80 mg PO DAILY@1200 06/17/22 06/17/22 ER] QUEtiapine [SEROquel] 50 mg PO DAILY@1200 06/17/22 06/17/22 guaiFENesin SYRUP 100MG/5ML 200 mg PO Q6H PRN 06/17/22 06/17/22 [Robitussin] hydroCHLOROthiazide [Hydrodiuril] 12.5 mg PO DAILY@0800 06/17/22 06/17/22 Allergies Allergy/AdvReac Type Severity Reaction Status Date / Time codeine Allergy Unknown Verified 06/17/22 18:10 Penicillins Allergy Unknown Verified 06/17/22 18:11 Review of Systems ROS Statement: Those systems with pertinent positive or pertinent negative responses have been documented in the HPI. ROS Other: All systems not noted in ROS Statement are negative. Constitutional: Denies: fever Eyes: Denies: eye pain ENT: Denies: ear pain Respiratory: Denies: cough Cardiovascular: Denies: chest pain Endocrine: Denies: fatigue Gastrointestinal: Denies: abdominal pain Genitourinary: Denies: dysuria Musculoskeletal: Reports: as per HPI. Denies: back pain Skin: Denies: rash Neurological: Denies: weakness Past Medical History Past Medical History: Dementia, Hyperlipidemia, Hypertension, Thyroid Disorder Additional Past Medical History / Comment(s): Overactive thyroid History of Any Multi-Drug Resistant Organisms: None Reported Past Surgical History: Adenoidectomy, Hysterectomy, Tonsillectomy Additional Past Surgical History / Comment(s): Hemmroid surgery, circulation issues Past Anesthesia/Blood Transfusion Reactions: No Reported Reaction Past Psychological History: Anxiety, Depression Smoking Status: Never smoker Past Alcohol Use History: None Reported Past Drug Use History: None Reported - Past Family History Father Additional Family Medical History / Comment(s): Father from a stroke. Mother Additional Family Medical History / Comment(s): Mother at age 69 from some type of cancer and history of asthma. Brother(s) Additional Family Medical History / Comment(s): Patient had multiple brothers and all have had issues with dementia and strokes. Sister(s) Additional Family Medical History / Comment(s): Patient has 2 sisters one at age 82 from dementia and one at age 79 from coronary artery disease. Daughter(s) Additional Family Medical History / Comment(s): Patient has 3 children, one boy and 2 girls with no major medical problems. General Exam Limitations: no limitations General appearance: alert, in no apparent distress Head exam: Present: normocephalic Eye exam: Present: normal appearance Neck exam: Present: normal inspection. Absent: tenderness Respiratory exam: Present: normal lung sounds bilaterally Cardiovascular Exam: Present: regular rate, normal rhythm Expanded Peripheral pulses: 2+: Radial (R) GI/Abdominal exam: Present: soft. Absent: tenderness Extremities exam: Present: tenderness (Proximal right forearm with moderate tenderness and swelling. Distally the extremity is neurovascular intact.) Neurological exam: Present: alert. Absent: motor sensory deficit Psychiatric exam: Present: normal affect, normal mood Skin exam: Present: normal color Course Vital Signs 06/17/22 06/17/22 18:06 18:35 Pulse Rate 68 66 Respiratory 18 16 Rate Blood Pressure 120/51 117/47 O2 Sat by Pulse 97 98 Oximetry Medical Decision Making - Medical Decision Making Patient reevaluated. Patient and family updated. - Radiology Data Radiology results: image reviewed (Right hip and pelvis x-ray as well as right forearm x-ray revealed no acute process.) Disposition Clinical Impression: Forearm contusion, Contusion, hip Disposition: HOME SELF-CARE Condition: Stable Instructions (If sedation given, give patient instructions): Hip Sprain (ED), Arm Pain (ED) Additional Instructions: Please do follow-up with primary care physician in the next day or 2 for recheck. Return for increased pain, unable to walk and take care of self, worsening symptoms or other concerns. [id number] Tylenol as needed. Sling as needed. Ice to affected area. Is patient prescribed a controlled substance at d/c from ED?: No Referrals: Jing Araujo MD [Primary Care Provider] - 1-2 days Time of Disposition: 19:16
[2022-06-17 18:38] VITALS: BP 117/47; PULSE 66; RESP 16
--- NOTE | 2022-06-17 18:56 | XR ---
PROCEDURE: XR forearm RT - 3V DATE AND TIME: 06/17/2022 6:22 PM CLINICAL INDICATION: Pain; fall TECHNIQUE: Department protocol COMPARISON: 05/12/2020 FINDINGS: There is no fracture or malalignment. The soft tissues are unremarkable. IMPRESSION: NO ACUTE PROCESS.
--- NOTE | 2022-06-17 19:07 | XR ---
PROCEDURE: XR Hip RT and AP Pelvis - 3V DATE AND TIME: 06/17/2022 6:59 PM CLINICAL INDICATION: Pain; fall TECHNIQUE: Department protocol COMPARISON: None FINDINGS: There is soft tissue swelling about soft tissues. No definite fracture or malalignment. IMPRESSION: Prominent right-sided soft tissue swelling.
[2022-06-17] MEDS ORDERED: ACETAMINOPHEN TAB 325 MG TAB PO STA (19:13)
== END 2022-06-17 19:40 | disposition home or self-care (01) ==
LOC: EC 18:04
DX: S50.11XA Contusion of right forearm, initial encounter (principal); S70.01XA Contusion of right hip, initial encounter; I10 Essential (primary) hypertension; E07.9 Disorder of thyroid, unspecified; E78.5 Hyperlipidemia, unspecified; Z88.5 Allergy status to narcotic agent; Z88.0 Allergy status to penicillin; Z79.899 Other long term (current) drug therapy; Z79.82 Long term (current) use of aspirin; Z79.890 Hormone replacement therapy; W01.0XXA Fall on same level from slipping, tripping and stumbling without subsequent striking against object, initial encounter
CPT/HCPCS: 73502; 99283

== ENCOUNTER 2022-06-29 12:22 | Emergency (ER) | payer MEDICARE, BC ==
[2022-06-29 12:31] VITALS: RESP 18; TEMP 98.2
--- NOTE | 2022-06-29 12:54 | ED ---
General Adult HPI - General Chief complaint: Recheck/Abnormal Lab/Rx Stated complaint: revisit Time Seen by Provider: 06/29/22 12:25 Source: patient, RN notes reviewed, old records reviewed Mode of arrival: EMS - History of Present Illness Initial comments: 87-year-old female brought in by EMS from [facility] home sent for episode of unresponsiveness. Per EMS [facility] staff stated that they could not wake patient until sternal rub performed. Patient has no complaints at this time. She is alert to person and place but not time. She does have a history of dementia. She has no difficulty breathing, no chest pain. Vital signs are stable. -: hour(s) Severity scale (1-10): 0 Associated Symptoms: denies other symptoms - Related Data Home Medications Medication Instructions Recorded Confirmed Levothyroxine Sodium [Synthroid] 50 mcg PO MOTUWETHFRSA@0730 09/20/19 06/29/22 Pentoxifylline 400 mg PO TID@0800,1200,199912/21/19 06/29/22 ALPRAZolam [Xanax] 0.5 mg PO TID PRN 06/17/22 06/29/22 Acetaminophen Tab [Tylenol] 650 mg PO Q4H PRN 06/17/22 06/29/22 Aspirin EC [Ecotrin Low Dose] 81 mg PO DAILY@79906/17/22 06/29/22 Clopidogrel [Plavix] 75 mg PO DAILY@79906/17/22 06/29/22 DULoxetine HCL [Cymbalta] 30 mg PO BID@08,199906/17/22 06/29/22 Divalproex ER [Depakote ER] 250 mg PO BID@08,199906/17/22 06/29/22 Docusate [Colace] 100 mg PO DAILY@79906/17/22 06/29/22 Ergocalciferol [Vitamin D2 (1250 1,250 mcg PO TH@79906/17/22 06/29/22 Mcg = 91434 Iu)] Kaolin Pectin 30 ml PO QID PRN 06/17/22 06/29/22 Magnesium Hydroxide [Milk of 2,400 mg PO DAILY PRN 06/17/22 06/29/22 Magnesia] QUEtiapine [SEROquel] 50 mg PO DAILY@1200 06/17/22 06/29/22 guaiFENesin SYRUP 100MG/5ML 200 mg PO Q6H PRN 06/17/22 06/29/22 [Robitussin] hydroCHLOROthiazide [Hydrodiuril] 12.5 mg PO DAILY PRN 06/17/22 06/29/22 Mag Hydrox/Aluminum Hyd/Simeth 15 ml PO BID PRN 06/29/22 06/29/22 [Mylanta Maximum Strength Liq] Memantine [Namenda] 5 mg PO BID@799,199906/29/22 06/29/22 Multivitamin [Multivitamins Adult 1 tab PO DAILY@79906/29/22 06/29/22 Gummies] Propranolol LA [Inderal LA] 60 mg PO HS@199906/29/22 06/29/22 Allergies Allergy/AdvReac Type Severity Reaction Status Date / Time codeine Allergy Unknown Verified 06/29/22 14:14 Penicillins Allergy Unknown Verified 06/29/22 14:14 Review of Systems ROS Statement: Those systems with pertinent positive or pertinent negative responses have been documented in the HPI. ROS Other: All systems not noted in ROS Statement are negative. Past Medical History Past Medical History: Dementia, Hyperlipidemia, Hypertension, Thyroid Disorder Additional Past Medical History / Comment(s): Overactive thyroid History of Any Multi-Drug Resistant Organisms: None Reported Past Surgical History: Adenoidectomy, Hysterectomy, Tonsillectomy Additional Past Surgical History / Comment(s): Hemmroid surgery, circulation issues Past Anesthesia/Blood Transfusion Reactions: No Reported Reaction Past Psychological History: Anxiety, Depression Smoking Status: Never smoker Past Alcohol Use History: None Reported Past Drug Use History: None Reported - Past Family History Father Additional Family Medical History / Comment(s): Father from a stroke. Mother Additional Family Medical History / Comment(s): Mother at age 69 from some type of cancer and history of asthma. Brother(s) Additional Family Medical History / Comment(s): Patient had multiple brothers and all have had issues with dementia and strokes. Sister(s) Additional Family Medical History / Comment(s): Patient has 2 sisters one at age 82 from dementia and one at age 79 from coronary artery disease. Daughter(s) Additional Family Medical History / Comment(s): Patient has 3 children, one boy and 2 girls with no major medical problems. General Exam General appearance: alert, in no apparent distress Head exam: Present: atraumatic, normocephalic Eye exam: Present: normal appearance, PERRL, EOMI. Absent: scleral icterus, conjunctival injection, periorbital swelling, periorbital tenderness ENT exam: Present: mucous membranes moist Neck exam: Present: normal inspection. Absent: tenderness, meningismus, full ROM, lymphadenopathy, thyromegaly Respiratory exam: Present: normal lung sounds bilaterally. Absent: respiratory distress, wheezes, rhonchi, stridor, accessory muscle use Cardiovascular Exam: Present: regular rate GI/Abdominal exam: Present: soft. Absent: distended, tenderness, rigid Extremities exam: Present: full ROM, normal capillary refill. Absent: tenderness, pedal edema Right Elbow exam: Present: full ROM, ecchymosis. Absent: tenderness Forearm Wrist exam: Present: full ROM, ecchymosis. Absent: tenderness Hand Wrist exam: Present: full ROM, ecchymosis. Absent: tenderness Left Hand Wrist exam: Present: full ROM, ecchymosis. Absent: tenderness Right Upper Leg exam: Present: full ROM, ecchymosis. Absent: tenderness Knee exam: Present: full ROM. Absent: tenderness, ecchymosis Neurovascular tendon exam: Present: no vascular compromise. Absent: abnormal cap refill, extremity cold to touch Gait: observed and limited by pain Back exam: Absent: tenderness, CVA tenderness (R), CVA tenderness (L), rash noted Neurological exam: Present: alert, oriented X3 Psychiatric exam: Present: normal affect, normal mood Skin exam: Present: warm, dry, normal color. Absent: cyanosis, diaphoretic, erythema, petechiae, pallor, mottled Course Vital Signs 06/29/22 06/29/22 12:26 15:13 Temperature 98.2 F Pulse Rate 70 79 Respiratory 18 18 Rate Blood Pressure 175/75 124/94 O2 Sat by Pulse 100 98 Oximetry - Reevaluation(s) Reevaluation #1: 06/29/22 13:30 Daughter at bedside states that patient did have a fall 2 weeks ago and she was seen at that time in the emergency room. She continued to have right arm swelling and bruising and was brought back for reevaluation on the and x- rays were performed and negative for fracture. Daughter concerned for overmedication at the [facility] home Time: 13:30 EKG Findings - EKG Results: EKG: sinus rhythm (Ventricular rate 70, OK interval 0.146, QRS 0.91, QTC 0.423; normal axis) Medical Decision Making - Medical Decision Making Patient sent from [facility] with complaints of an episode of altered mental status requiring sternal rub to arouse patient. She is awake and alert with no complaints at this time. She does have a history of dementia. Daughter at bedside states that she believes that she may be overmedicated. States that she is taking Xanax Cymbalta and Seroquel. Chest x-ray shows probably defined infiltrative or nodular density left mid lung. Right hilar prominence raises possibility of adenopathy. Daughter was notified of these results and recommended follow-up with primary care doctor. CT brain C-spine shows no acute intracranial process, no evidence of cervical spine fracture. There is mild multilevel degenerative disc disease Labs show slight anemia 9.6. Potassium is 3.0 patient was given supplementation the emergency room. No evidence of urinary tract infection Patient is up ambulating in the [place] with a steady gait. She has no complaints. Patient's excessive drowsiness may be related to overmedication therefore after discussing with Dr. Wong patient and daughter will be directed to stop taking her Seroquel until further discussion with the primary care doctor. Daughter at bedside is agreeable to this plan of care. Patient will be discharged home. Vital signs are stable. - Lab Data Result diagrams: 06/29/22 13:07 06/29/22 13:07 Lab Results 06/29/22 06/29/22 06/29/22 Range/Units 13:07 13:07 13:07 WBC 10.0 (3.8-10.6) k/uL RBC 2.90 L (3.80-5.40) m/uL Hgb 9.6 L (11.4-16.0) gm/dL Hct 30.1 L (34.0-46.0) % MCV 103.9 H (80.0-100.0) fL MCH 33.2 (25.0-35.0) pg MCHC 32.0 (31.0-37.0) g/dL RDW 19.0 H (11.5-15.5) % Plt Count 552 H (150-450) k/uL MPV 8.4 Neutrophils % 67 % Lymphocytes % 19 % Monocytes % 9 % Eosinophils % 2 % Basophils % 1 % Neutrophils # 6.7 (1.3-7.7) k/uL Lymphocytes # 1.9 (1.0-4.8) k/uL Monocytes # 0.9 (0-1.0) k/uL Eosinophils # 0.2 (0-0.7) k/uL Basophils # 0.1 (0-0.2) k/uL Hypochromasia Moderate Poikilocytosis Slight Anisocytosis Slight Macrocytosis Moderate PT 10.2 (9.0-12.0) sec INR 0.9 (<1.2) APTT 24.1 (22.0-30.0) sec Sodium 137 (137-145) mmol/L Potassium 3.0 L (3.5-5.1) mmol/L Chloride 98 (98-107) mmol/L Carbon Dioxide 30 (22-30) mmol/L Anion Gap 9 mmol/L BUN 33 H (7-17) mg/dL Creatinine 0.62 (0.52-1.04) mg/dL Est GFR (CKD-EPI)AfAm >90 (>60 ml/min/1.73 sqM) Est GFR (CKD-EPI)NonAf 80 (>60 ml/min/1.73 sqM) Glucose 109 H (74-99) mg/dL Calcium 8.7 (8.4-10.2) mg/dL Total Bilirubin 1.3 (0.2-1.3) mg/dL AST 33 (14-36) U/L ALT 15 (4-34) U/L Alkaline Phosphatase 70 (38-126) U/L Troponin I (0.000-0.034) ng/mL Total Protein 6.8 (6.3-8.2) g/dL Albumin 3.9 (3.5-5.0) g/dL Urine Color Urine Appearance (Clear) Urine pH (5.0-8.0) Ur Specific [place] (1.001-1.035) Urine Protein (Negative) Urine Glucose (UA) (Negative) Urine Ketones (Negative) Urine Blood (Negative) Urine Nitrite (Negative) Urine Bilirubin (Negative) Urine Urobilinogen (<2.0) mg/dL Ur Leukocyte Esterase (Negative) Valproic Acid ug/mL 06/29/22 06/29/22 06/29/22 Range/Units 13:07 13:07 14:30 WBC (3.8-10.6) k/uL RBC (3.80-5.40) m/uL Hgb (11.4-16.0) gm/dL Hct (34.0-46.0) % MCV (80.0-100.0) fL MCH (25.0-35.0) pg MCHC (31.0-37.0) g/dL RDW (11.5-15.5) % Plt Count (150-450) k/uL MPV Neutrophils % % Lymphocytes % % Monocytes % % Eosinophils % % Basophils % % Neutrophils # (1.3-7.7) k/uL Lymphocytes # (1.0-4.8) k/uL Monocytes # (0-1.0) k/uL Eosinophils # (0-0.7) k/uL Basophils # (0-0.2) k/uL Hypochromasia Poikilocytosis Anisocytosis Macrocytosis PT (9.0-12.0) sec INR (<1.2) APTT (22.0-30.0) sec Sodium (137-145) mmol/L Potassium (3.5-5.1) mmol/L Chloride (98-107) mmol/L Carbon Dioxide (22-30) mmol/L Anion Gap mmol/L BUN (7-17) mg/dL Creatinine (0.52-1.04) mg/dL Est GFR (CKD-EPI)AfAm (>60 ml/min/1.73 sqM) Est GFR (CKD-EPI)NonAf (>60 ml/min/1.73 sqM) Glucose (74-99) mg/dL Calcium (8.4-10.2) mg/dL Total Bilirubin (0.2-1.3) mg/dL AST (14-36) U/L ALT (4-34) U/L Alkaline Phosphatase (38-126) U/L Troponin I 0.013 (0.000-0.034) ng/mL Total Protein (6.3-8.2) g/dL Albumin (3.5-5.0) g/dL Urine Color Yellow Urine Appearance Clear (Clear) Urine pH 6.0 (5.0-8.0) Ur Specific [place] 1.025 (1.001-1.035) Urine Protein Trace H (Negative) Urine Glucose (UA) Negative (Negative) Urine Ketones Negative (Negative) Urine Blood Negative (Negative) Urine Nitrite Negative (Negative) Urine Bilirubin Negative (Negative) Urine Urobilinogen 2.0 (<2.0) mg/dL Ur Leukocyte Esterase Negative (Negative) Valproic Acid 29.9 ug/mL Disposition Clinical Impression: Altered mental status Disposition: HOME SELF-CARE Condition: Good Additional Instructions: Stop taking Seroquel, this may be the cause of your excessive sleepiness and altered mental status. X-ray shows a poorly defined nodular density left mid lung please follow-up with your primary care doctor for continuation of care. Return to emergency room if any new or concerning symptoms. Is patient prescribed a controlled substance at d/c from ED?: No Referrals: Jing Araujo MD [Primary Care Provider] - 1-2 days Time of Disposition: 15:06
[2022-06-29 13:18] LABS: Anisocytosis Slight; Basophils # (A) 0.1 k/uL (0-0.2); Basophils % (A) 1 %; Eosinophils # (A) 0.2 k/uL (0-0.7); Eosinophils % (A) 2 %; HCT 30.1 % (34.0-46.0); HGB 9.6 gm/dL (11.4-16.0); Hypochromasia Moderate; Lymphocytes # (A) 1.9 k/uL (1.0-4.8); Lymphocytes % (A) 19 %; MCH 33.2 pg (25.0-35.0); MCV 103.9 fL (80.0-100.0); Macrocytosis Moderate; Mean Platelet Volume 8.4; Monocytes # (A) 0.9 k/uL (0-1.0); Monocytes % (A) 9 %; Neutrophils # (A) 6.7 k/uL (1.3-7.7); Neutrophils % (A) 67 %; Platelet Count 552 k/uL (150-450); Poikilocytosis Slight
[2022-06-29 13:33] LABS: ALT 15 U/L (4-34); AST 33 U/L (14-36); African American GFR (CKD) >90 (>60 ml/min/1.73 sqM); Albumin 3.9 g/dL (3.5-5.0); Alkaline Phosphatase 70 U/L (38-126); Anion Gap 9 mmol/L; Blood Urea Nitrogen 33 mg/dL (7-17); Calcium 8.7 mg/dL (8.4-10.2); Carbon Dioxide 30 mmol/L (22-30); Chloride 98 mmol/L (98-107); Glucose 109 mg/dL (74-99); Non-African American GFR(CKD) 80 (>60 ml/min/1.73 sqM); Sodium 137 mmol/L (137-145); Total Bilirubin 1.3 mg/dL (0.2-1.3); Total Protein 6.8 g/dL (6.3-8.2)
--- NOTE | 2022-06-29 13:47 | XR ---
EXAMINATION TYPE: XR chest 2V DATE OF EXAM: 06/29/2022 COMPARISON: NONE TECHNIQUE: PA and lateral views submitted. HISTORY: Altered mental status FINDINGS: Hyperinflation suggests COPD and there is hypertrophic degenerative changes spine. Calcified lymph no de in the left hilum suspect there is prominence of the right hilum. The vague nodular density seen i n the left midlung. CT scan is recommended to assess for neoplastic process. No pneumothorax. Minimal blunting of the costophrenic angles with no definite sizable pleural effusio n. Lateral view suggests possible calcified granuloma in the substernal space. IMPRESSION: 1. COPD. Question of poorly defined infiltrative or nodular density left midlung CT scan of the chest recommended. 2. Right hilar prominence raises the possibility of adenopathy. Pulmonary arterial hypertension also in the differential diagnosis. No prior exams available for comparison.
[2022-06-29 13:54] LABS: INR 0.9 (<1.2); Partial Thromboplastin Time 24.1 sec (22.0-30.0); Prothrombin Time 10.2 sec (9.0-12.0)
--- NOTE | 2022-06-29 14:12 | CT ---
EXAMINATION TYPE: CT brain cspine wo con CT DLP: 1172 mGycm, Automated exposure control for dose reduction was used. DATE OF EXAM: 06/29/2022 1:47 PM COMPARISON: None. CLINICAL INDICATION:Female, 87 years old with history of pain; ams, dementia TECHNIQUE: Brain: Multiple axial CT images of the brain were obtained without IV contrast. Cspine: Axial CT images from the skull base to the inferior aspect of T2 we obtained without intraven ous contrast. Coronal and sagittal reformatted images were also reviewed. FINDINGS: Brain: Extra-axial spaces: No abnormal extra-axial fluid collections. Ventricular system: Dilatation in proportion to cerebral atrophy. Cerebral parenchyma: Cerebral atrophy. No acute intraparenchymal hemorrhage or mass effect. The cowart -white junction is well differentiated. Scattered hypoattenuating areas are seen within the white mat ter. Cerebellum: Unremarkable. Mass effect: No evidence of midline shift. Intracranial vasculature: Atherosclerotic calcifications of the intracranial vessels. Soft tissues: Normal. Calvarium/osseous structures: No depressed skull fracture. Paranasal sinuses and mastoid air cells: Mild scattered mucosal thickening and or secretions. Visualized orbits: Orbital contents are intact. Cervical spine: Fracture: None. Osseous structures: Multilevel degenerative disc disease changes with endplate spurring and disc oste ophyte complex's. Vertebral alignment: Within normal limits. Spinal canal/Neural Foramina: Disc osteophyte complexes at C6-C7 with at least mild spinal canal sten osis. Facet joint uncovertebral joint arthropathy scattered throughout the cervical spine with varyin g degrees of neural foraminal stenosis. Neck soft tissues: Prevertebral soft tissues are within normal limits. Other: The airway is patent. The lung apices are clear. IMPRESSION: 1. No acute intracranial process. 2. Nonspecific white matter changes, likely secondary to chronic small vessel ischemic disease. 3. No evidence of cervical spine fracture. 4. Mild multilevel degenerative disc disease.
[2022-06-29] MEDS ORDERED: POTASSIUM CHLORIDE ER 20 MEQ TAB.ER PO STA (14:38)
[2022-06-29 14:49] LABS: Appearance,Urine Clear (Clear); Bilirubin,Urine Negative (Negative); Blood,Urine Negative (Negative); Color,Urine Yellow; Glucose,Urine (UA) Negative (Negative); Ketones,Urine Negative (Negative); Leukocyte Esterase,Urine Negative (Negative); Nitrite,Urine Negative (Negative); Protein,Urine Trace (Negative); Specific Gravity,Urine 1.025 (1.001-1.035)
[2022-06-29 15:14] VITALS: BP 124/94; PULSE 79
== END 2022-06-29 15:25 | disposition home or self-care (01) ==
LOC: EC 12:22
DX: R41.82 Altered mental status, unspecified (principal); E78.5 Hyperlipidemia, unspecified; I10 Essential (primary) hypertension; E07.9 Disorder of thyroid, unspecified; F41.9 Anxiety disorder, unspecified; F32.A Depression, unspecified; Z88.5 Allergy status to narcotic agent; Z88.0 Allergy status to penicillin; Z79.82 Long term (current) use of aspirin; Z79.899 Other long term (current) drug therapy
CPT/HCPCS: 36415; 70450; 71046; 72125; 80053; 80164; 81003; 84484; 85025; 85610; 85730; 93005; 99285